=== PATIENT | male | born 1965 | race Caucasian/White ===

== ENCOUNTER 2018-01-12 20:45 | Emergency (ER) | payer OTHER, SELFPAY ==
[~2018-01-12 20:45] MED LIST: ISOVUE-370 76%-LOCM 1 ML ONE
--- NOTE | 2018-01-12 21:10 | RAD ---
CHEST TWO VIEWS: 01/12/18 HISTORY: Chest pain. COMPARISON: 07/09/17. FINDINGS: The cardiac silhouette and pulmonary vasculature are unremarkable. Mediastinum is midline. Bibasilar scarring is stable. There is no lobar consolidation, pneumothorax, or pleural fluid apparent. IMPRESSION: Chronic type findings are stable. No active cardiopulmonary abnormalities are demonstrated. POS: [facility]
[2018-01-12 21:46] LABS: #Eosinphils 0.1 thou/uL (0.0-0.7); #Lymphocytes 1.2 thou/uL (1.20-3.40); #Monocytes 0.6 thou/uL (0.11-0.59); #Neutrophils 4.1 thou/uL (1.40-6.50); %Basophils 0.6 % (0.0-1.0); %Eosinophils 1.7 % (0.0-10.0); %Lymphocytes 19.9 % (21.0-51.0); %Monocytes 9.3 % (0.0-10.0); %Neutrophils 68.6 % (42.0-75.0); Hemoglobin 14.1 g/dL (14.0-18.0); Mean Corpuscular HGB CONC 35.5 g/dL (32.0-36.0); Mean Corpuscular Hemoglobin 34.9 pg (27.0-31.0); Mean Corpuscular Volume 98.3 fl (80.0-94.0); Mean Platelet Volume 8.3 fL (7.4-10.4); Platelet Count 114 thou/uL (130-400); RBC Distribution Width 12.8 % (11.5-14.5); Red Blood Cell (RBC) Count 4.05 mill/uL (4.70-6.10); White Blood Cell (WBC) Count 5.9 thou/uL (4.8-10.8)
--- NOTE | 2018-01-12 22:03 | CT ---
CT NECK WITH IV CONTRAST 01/12/18 HISTORY: Cough. Neck pain. FINDINGS: Airway is patent. No tonsillar abscess is apparent. Reactive appearing lymph nodes are present along each jugular chain. Mucosal thickening is apparent within the ethmoid air cells and maxillary sinuses, left greater than right. Degenerative changes of the cervical spine include disc space narrowing, osteophytosis and pos terior disc bulges. Central canal stenosis is most pronounced at the C5-6 level. IMPRESSION: 1. No acute inflammatory changes of the neck are apparent. 2. Bilateral maxillary and ethmoid sinusitis. 3. Degenerative changes cervical spine. POS: [facility]
[2018-01-12 22:06] LABS: ALT (SGPT) 49 U/L (8-55); AST (SGOT) 31 U/L (5-34); Albumin 3.7 g/dL (3.5-5.0); Alkaline Phosphatase 69 U/L (40-150); Anion Gap 12 mmol/L (10-20); BUN (Urea Nitrogen) 16 mg/dL (8.4-25.7); Bilirubin, Total 0.5 mg/dL (0.2-1.2); CK (CPK) 59 U/L (30-200); Calc. Creatinine Clearance 0 mL/min (70-130); Calcium 8.8 mg/dL (7.8-10.44); Carbon Dioxide 25 mmol/L (22-29); Chloride 104 mmol/L (98-107); Estimated GFR-MDRD 82; Globulin 3.1 g/dL (2.4-3.5); Glucose 170 mg/dL (70-105); Magnesium 1.9 mg/dL (1.6-2.6); Protein, Total 6.8 g/dL (6.0-8.3); Sodium 137 mmol/L (136-145)
[2018-01-12 22:10] LABS: CKMB 0.6 ng/mL (0-6.6); Troponin I Less than 0.010 ng/mL (< 0.028)
[2018-01-12] MEDS ORDERED: Azithromycin 500 MG VIAL ONE (22:57)
--- NOTE | 2018-01-16 15:44 | EKG ---
Test Reason : [facility] CRIERIA Blood Pressure : / mmHG Vent. Rate : 082 BPM Atrial Rate : 082 BPM P-R Int : 156 ms QRS Dur : 110 ms QT Int : 380 ms P-R-T Axes : 059 -38 038 degrees QTc Int : 443 ms Normal sinus rhythm Left axis deviation Incomplete right bundle branch block Possible Anterior infarct , age undetermined Abnormal ECG Confirmed by LINA EUGENE D.O. ([id number]), image editor JAILYN MONTIEL ([id number]) on 01/16/2018 3:44:14 PM Referred By: Confirmed By:LINA EUGENE D.O.
== END 2018-01-13 00:10 | disposition home or self-care (01) ==
LOC: ERS 20:45
DX: J01.90 Acute sinusitis, unspecified (principal); E11.9 Type 2 diabetes mellitus without complications; E78.5 Hyperlipidemia, unspecified; I10 Essential (primary) hypertension; F31.9 Bipolar disorder, unspecified; F41.9 Anxiety disorder, unspecified; Z87.891 Personal history of nicotine dependence
CPT/HCPCS: 70491; 71046; 80053; 82553; 83735; 83880; 84484; 85025; 93005; 96365; J0456

== ENCOUNTER 2018-06-05 02:06 | Emergency (ER) | payer SELFPAY | END 2018-06-05 06:05 | disposition home or self-care (01) | LOC: ERS 02:06 | DX: S10.96XA Insect bite of unspecified part of neck, initial encounter (principal); E11.9 Type 2 diabetes mellitus without complications; E78.5 Hyperlipidemia, unspecified; I10 Essential (primary) hypertension; G47.30 Sleep apnea, unspecified; F31.9 Bipolar disorder, unspecified; F41.9 Anxiety disorder, unspecified; Z87.891 Personal history of nicotine dependence; W57.XXXA Bitten or stung by nonvenomous insect and other nonvenomous arthropods, initial encounter | CPT/HCPCS: 36416; 99282 ==

== ENCOUNTER 2018-06-12 21:15 | Emergency (ER) | payer SELFPAY ==
[2018-06-12] MEDS ORDERED: Fluorescein Opthalmic Strip ONE (22:38)
[2018-06-12] MEDS ORDERED: Proparacaine 0.5% Opth 15 ML BOT ONE (22:38)
== END 2018-06-12 23:15 | disposition home or self-care (01) ==
LOC: ERS 21:15
DX: H10.021 Other mucopurulent conjunctivitis, right eye (principal); E11.9 Type 2 diabetes mellitus without complications; E78.5 Hyperlipidemia, unspecified; I10 Essential (primary) hypertension; F31.9 Bipolar disorder, unspecified; F41.9 Anxiety disorder, unspecified; Z87.891 Personal history of nicotine dependence; Z79.899 Other long term (current) drug therapy; Z79.84 Long term (current) use of oral hypoglycemic drugs
CPT/HCPCS: 99282

== ENCOUNTER 2018-07-09 21:17 | Inpatient (IN) | payer SELFPAY ==
[2018-07-09 22:06] LABS: Bilirubin Negative (Negative); Blood, Urine Negative (Negative); Clarity CLEAR (Clear); Glucose, Urine (Dipstick) >=1000 mg/dL (Negative); Leukocyte Negative (Negative); Nitrite Negative (Negative); Protein, Urine (Dipstick) Negative (Neg-Trace)
--- NOTE | 2018-07-09 22:06 | RAD ---
PORTABLE AP CHEST X-RAY 07/09/18 HISTORY: Chest pain with onset of symptoms two days ago. Symptoms became worse tonight. COMPARISON: 07/09/18. FINDINGS: The cardiac silhouette is magnified by projection. Pulmonary vasculature is within normal limits. Vita gs are clear. Monitor leads overlie the chest. There has been no other interval change from the prior exam. IMPRESSION: No acute cardiopulmonary process. POS: [facility]
[2018-07-09 22:21] LABS: ALT (SGPT) 33 U/L (8-55); AST (SGOT) 18 U/L (5-34); Albumin 3.8 g/dL (3.5-5.0); Alkaline Phosphatase 90 U/L (40-150); Anion Gap 13 mmol/L (10-20); BUN (Urea Nitrogen) 12 mg/dL (8.4-25.7); CK (CPK) 52 U/L (30-200); Calc. Creatinine Clearance 0 mL/min (70-130); Carbon Dioxide 24 mmol/L (22-29); Chloride 100 mmol/L (98-107); Estimated GFR-MDRD 68; Globulin 3.2 g/dL (2.4-3.5); Glucose 453 mg/dL (70-105); Potassium 4.2 mmol/L (3.5-5.1); Sodium 133 mmol/L (136-145)
[2018-07-09 22:27] LABS: CKMB 0.6 ng/mL (0-6.6); Troponin I Less than 0.010 ng/mL (< 0.028)
[2018-07-09 22:36] LABS: Lipase 1170 U/L (8-78)
[2018-07-09 22:40] LABS: Hemoglobin 14.6 g/dL (14.0-18.0); Mean Corpuscular Volume 94.9 fL (78.0-98.0); Red Blood Cell (RBC) Count 4.18 mill/uL (4.70-6.10); White Blood Cell (WBC) Count 6.3 thou/uL (4.8-10.8)
[2018-07-09 23:10] LABS: #Eosinphils 0.1 thou/uL (0.0-0.7); #Lymphocytes 1.3 thou/uL (1.20-3.40); #Monocytes 0.5 thou/uL (0.11-0.59); #Neutrophils 4.3 thou/uL (1.40-6.50); %Basophils 0.5 % (0.0-1.0); %Eosinophils 1.4 % (0.0-10.0); %Lymphocytes 21.3 % (21.0-51.0); %Monocytes 8.2 % (0.0-10.0); %Neutrophils 68.7 % (42.0-75.0); Mean Corpuscular HGB CONC 36.7 g/dL (32.0-36.0); Mean Corpuscular Hemoglobin 34.9 pg (27.0-31.0); Mean Platelet Volume 8.1 fL (7.4-10.4); Platelet Count 116 thou/uL (130-400); RBC Distribution Width 11.6 % (11.5-14.5)
[2018-07-09 23:11] LABS: PLT Morphology Comment Appears Decreased
--- NOTE | 2018-07-10 00:30 | CT ---
CT ANGIOGRAM THORAX AND ABDOMEN WITH IV CONTRAST AND 3D RECONSTRUCTIONS 07/09/18 HISTORY: Chest pain and shortness of breath. Left sided abdominal pain for two to three days. COMPARISON: CTA thorax on 06/26/[address] abdomen on 06/03/16. FINDINGS: There is suboptimal timing of the contrast bolus. However, the thoracic and abdominal aorta are sandra l in caliber without evidence of an aortic dissection. Minimal vascular calcifications are seen in th e infrarenal abdominal aorta and involving the iliac arteries. The visualized iliac arteries patent. Mediastinal structures have a normal appearance. Minimal vascular calcifications seen in the coronary arteries. There is a small approximately 7 mm nodule density at the posterior aspect of the right lung apex. Th is was not seen on the prior exam. This has more of a linear appearance on coronal images and could b e related to mild atelectasis as opposed to pulmonary nodule but followup evaluation is recommended g iven the size of this nodular density. There is bibasilar atelectasis present. No pleural effusion is noted. Again noted is diffuse fatty infiltration of the liver. The liver is enlarged in craniocaudal dimensi ons measuring 23.8 cm. The spleen is also enlarged and measures 18.9 cm in AP dimensions. There is cortical scarring involving the superior pole of each kidney. The kidneys otherwise have a n ormal CT appearance. The pancreas and bilateral adrenal glands demonstrate a normal CT appearance. Small fat containing um bilical hernia is noted. There has been no other interval change from the prior study. Degenerative changes are again noted in the spine. IMPRESSION: 1. Pleural based nodular density in the posterior aspect right lung apex. This was not seen on p rior exam in 2016. This probably represents an area of atelectasis, but given suggestion of nodularit y, followup CT thorax in six months is recommended. 2. The thoracic and abdominal aorta are normal in caliber without evidence of an aortic dissecti on. 3. Hepatosplenomegaly with fatty infiltration of the liver. 4. Scarring in the superior pole of each kidney. POS: [facility]
[2018-07-10 04:07] VITALS: BMI 38.5
--- NOTE | 2018-07-10 04:17 | PDOC.EVN ---
Event Note - Event Note Event Note: verified with patient - in the past month he has been going to a new PCP Dr. Shelby at [facility] and no longer sees Dr. Rodney
[2018-07-10] MEDS ORDERED: Dextrose 5% in Water 1,000 ML IV PRN ×2 (04:19→08:09)
[2018-07-10] MEDS ORDERED: Dextrose 50% Abboject 50 ML SYRINGE SLOW IVP PRN ×2 (04:19→08:09)
[2018-07-10] MEDS ORDERED: HumaLOG 300 UNITS/3 ML VIAL SC PRN ×2 (04:19→08:09)
[2018-07-10] MEDS: Fentanyl 100 MCG/2 ML VIAL SLOW IVP PRN ×4 (04:33→22:06)
[2018-07-10] MEDS: Sodium Chloride 0.9% 1,000 ML IV SCH ×4 (04:34→23:55)
[2018-07-10 05:19] LABS: #Basophils 0.1 thou/uL (0.0-0.2); #Eosinphils 0.1 thou/uL (0.0-0.7); #Lymphocytes 1.3 thou/uL (1.20-3.40); #Monocytes 0.5 thou/uL (0.11-0.59); #Neutrophils 3.9 thou/uL (1.40-6.50); %Basophils 0.9 % (0.0-1.0); %Eosinophils 1.8 % (0.0-10.0); %Lymphocytes 21.5 % (21.0-51.0); %Monocytes 9.3 % (0.0-10.0); %Neutrophils 66.5 % (42.0-75.0); Hemoglobin 14.3 g/dL (14.0-18.0); Mean Corpuscular HGB CONC 36.7 g/dL (32.0-36.0); Mean Corpuscular Hemoglobin 34.9 pg (27.0-31.0); Mean Corpuscular Volume 95.3 fL (78.0-98.0); Mean Platelet Volume 7.8 fL (7.4-10.4); Platelet Count 102 thou/uL (130-400); RBC Distribution Width 11.6 % (11.5-14.5); Red Blood Cell (RBC) Count 4.09 mill/uL (4.70-6.10); White Blood Cell (WBC) Count 5.8 thou/uL (4.8-10.8)
[2018-07-10 05:32] LABS: Anion Gap 14 mmol/L (10-20); BUN (Urea Nitrogen) 10 mg/dL (8.4-25.7); Calc. Creatinine Clearance 199 mL/min (70-130); Calcium 8.7 mg/dL (7.8-10.44); Carbon Dioxide 21 mmol/L (22-29); Chloride 104 mmol/L (98-107); Estimated GFR-MDRD Greater than 90; Glucose 293 mg/dL (70-105); Potassium 3.8 mmol/L (3.5-5.1); Sodium 135 mmol/L (136-145)
[2018-07-10 05:45] LABS: Lipase 1164 U/L (8-78)
[2018-07-10] MEDS ORDERED: hydrALAZINE 20 MG/ML VIAL SLOW IVP PRN (08:09)
[2018-07-10] MEDS ORDERED: Ondansetron HCl/PF 4 MG/2 ML Vial IVP PRN (08:09)
[2018-07-10] MEDS ORDERED: Lisinopril 20 MG TAB PO SCH (09:00)
[2018-07-10] MEDS: Aspirin 81 mg Enteric Coated Tablet PO SCH (10:12)
[2018-07-10] MEDS: Famotidine/PF 20 mg/2ml Vial SLOW IVP SCH ×2 (10:12→20:22)
[2018-07-10] MEDS: Enoxaparin Sodium 40 MG/0.4 ML SYRINGE SC SCH (10:12)
[2018-07-10] MEDS: cloNIDine 0.1 MG TAB PO SCH ×2 (10:13→20:21)
[2018-07-10] MEDS: Divalproex Sodium DR 500 MG TAB PO SCH ×2 (10:13→20:21)
[2018-07-10 12:49] LABS: Cardiac Risk 4.5 (Less than 4.5)
[2018-07-10] MEDS: HumaLOG 300 UNITS/3 ML VIAL SC PRN (13:05)
--- NOTE | 2018-07-10 13:38 | HP ---
PRIMARY CARE PHYSICIAN: [facility] in [place]. CHIEF COMPLAINT: Abdominal and chest pain. HISTORY OF PRESENT ILLNESS: Mr. Castaneda is a pleasant 52-year-old gentleman that has a history of diabe edmund mellitus and hypertension and also a previous history of pancreatitis about 2 years ago. He was in his usual state of health until about 4 days ago, he started feeling a gas pressure, primarily in his left side. It started in the lower abdomen actually and then progressed up into his chest. He s ays that it would get worse when he tried to eat and then he would start getting sick and having naus ea and vomiting. The pain got progressively worse to the point where it became a 9-10/10, and for th is reason, he came to the emergency room for evaluation. In the ER, he was found to have an elevated lipase and he is being admitted for an acute pancreatitis. He denies any fevers or chills. No chaitanya temesis, no blood in the urine, no blood in his stool. His only other symptoms are increase in urina tion, which he attributes to his blood glucose being elevated, but no blood in the urine and no dysur ia. REVIEW OF SYSTEMS: All systems were reviewed and are negative except for that mentioned in the histo ry of present illness. PAST MEDICAL HISTORY: Significant for diabetes mellitus, hypertension, hyperlipidemia, obstructive s leep apnea, depression, and pancreatitis. PAST SURGICAL HISTORY: He has had an I and D of an abscess on his arm. Right shoulder surgery and k nee surgery. ALLERGIES: MORPHINE and PENICILLIN. FAMILY HISTORY: Significant for diabetes and hypertension. SOCIAL HISTORY: He is a former smoker. He quit about 30 years ago. He denies any alcohol use. He is and has 3 children. He does not work. He says he is too sick to work, but he did not esdon lify for disability. MEDICATIONS: Include Depakote 500 mg twice a day, tramadol 50 mg t.i.d., clonidine 0.1 mg twice a da y, ibuprofen 800 mg t.i.d. as needed, metformin 1000 mg twice a day, lisinopril 40 mg daily, aspirin 81 mg a day. PHYSICAL EXAMINATION: GENERAL: He is alert and oriented. He appears to be in no acute distress. VITAL SIGNS: Blood pressure is 129/70, heart rate 59, respiratory rate of 20, temperature is 97.9. HEENT: His pupils are equal, round, and reactive. Extraocular muscles are intact. His sclerae are anicteric. Throat, no erythema, no exudates. NECK: No adenopathy, no bruits. LUNGS: Clear to auscultation. I did not appreciate any wheezing or rales. CARDIOVASCULAR: He has a normal S1 and S2. There is no S3 or S4. No murmurs, clicks, or rubs. ABDOMEN: Obese; it is soft. He has got some tenderness in the epigastric region as well as the left lower and upper quadrants. There is no rebound or guarding. EXTREMITIES: He does have some mild discoloration of his both calves, trace bilateral edema. He has got good dorsalis pedis pulses bilaterally. He has mycotic nails on both feet and some thickening o f the skin around the heels as well as some cracking on the left heel, but there is no drainage. NEUROLOGICAL: The exam is nonfocal. LABORATORY RESULTS: The white blood cell count is 5.8, hemoglobin 14.3, hematocrit is 39, platelet c ount is 102. Sodium was 135, potassium 3.8, chloride is 104, CO2 is 21, BUN of 10, creatinine 0.88, glucose is 293. Urinalysis was essentially negative. CT scan dissection protocol showed a pleural-b ased nodular density in the posterior aspect of the right lung apex, was not seen in 2016, probably r epresents atelectasis, but given the nodularity, a followup CT is recommended in 6 months. There was hepatosplenomegaly with fatty infiltration of the liver and scarring in the superior pole of each ki dney. ASSESSMENT AND PLAN: This is a 52-year-old gentleman, who presents to the emergency room with, 1. Severe abdominal pain and elevated lipase. He is being admitted for acute pancreatitis. The cau se is not immediately obvious. He will be placed on bowel rest and IV fluids. Since he is allergic to MORPHINE, we will give a trial of fentanyl as well as IV antiemetics. We will get an abdominal ul trasound in the event he has some radio-nonopaque stones in the gallbladder and also check a lipid pa talisha to rule out hypertriglyceridemia as a potential cause. 2. For diabetes mellitus, since he is n.p.o., he will be placed on a sliding scale insulin. He says his diabetes had not been very well controlled, and for this reason, we will likely discharge him in addition to the metformin, when it is time for him to be discharged home, possibly a long-acting ins ulin. 3. Hypertension. Since his blood pressure is currently well controlled and since he is n.p.o., we w ill place him on p.r.n. medications, and he will be placed on deep venous thrombosis and gastrointest inal prophylaxis.
--- NOTE | 2018-07-10 15:35 | ULT ---
ABDOMINAL ULTRASOUND: INDICATION: Acute pancreatitis. FINDINGS: The liver is echogenic suggesting hepatic steatosis or chronic hepatic medical disease. The gallbladder appears unremarkable. No evidence of gallstones. The common duct is normal caliber. Pancreas is mostly obscured. No evidence of peripancreatic edema. CT is recommended to evaluate the pancreas if pancreatitis is suspected. The spleen is enlarged. The liver is also enlarged measuring up to 21 cm. The technologist describe s a negative Nova's sign. The abdominal aorta and IVC are mostly obscured but appear normal as vis ualized. The common bile duct is normal caliber at 5 mm. Both kidneys are imaged and have symmetric size measuring 12 cm each. No hydronephrosis or acute renal abnormality identified. IMPRESSION: 1. Hepatosplenomegaly. 2. Echogenic liver suggesting hepatic steatosis or medical liver disease. 3. The pancreas is obscured and not adequately evaluated by ultrasound. POS: [facility]
[2018-07-11 04:29] LABS: #Basophils 0.1 thou/uL (0.0-0.2); #Eosinphils 0.1 thou/uL (0.0-0.7); #Lymphocytes 1.3 thou/uL (1.20-3.40); #Monocytes 0.5 thou/uL (0.11-0.59); #Neutrophils 4.1 thou/uL (1.40-6.50); %Basophils 0.9 % (0.0-1.0); %Lymphocytes 21.1 % (21.0-51.0); %Monocytes 7.7 % (0.0-10.0); %Neutrophils 68.3 % (42.0-75.0); Mean Corpuscular Hemoglobin 33.6 pg (27.0-31.0); Mean Platelet Volume 7.8 fL (7.4-10.4); Platelet Count 102 thou/uL (130-400); RBC Distribution Width 11.7 % (11.5-14.5); Red Blood Cell (RBC) Count 4.18 mill/uL (4.70-6.10)
[2018-07-11] MEDS: Fentanyl 100 MCG/2 ML VIAL SLOW IVP PRN ×2 (04:29→11:58)
[2018-07-11 04:48] LABS: Anion Gap 11 mmol/L (10-20); BUN (Urea Nitrogen) 9 mg/dL (8.4-25.7); Calc. Creatinine Clearance 216 mL/min (70-130); Calcium 8.8 mg/dL (7.8-10.44); Carbon Dioxide 24 mmol/L (22-29); Chloride 106 mmol/L (98-107); Estimated GFR-MDRD Greater than 90; Glucose 134 mg/dL (70-105); Lipase 808 U/L (8-78); Potassium 4.3 mmol/L (3.5-5.1); Sodium 137 mmol/L (136-145)
[2018-07-11] MEDS: Sodium Chloride 0.9% 1,000 ML IV SCH ×3 (06:32→17:48)
[2018-07-11] MEDS: Aspirin 81 mg Enteric Coated Tablet PO SCH (08:20)
[2018-07-11] MEDS: Divalproex Sodium DR 500 MG TAB PO SCH ×2 (08:20→20:14)
[2018-07-11] MEDS: Famotidine/PF 20 mg/2ml Vial SLOW IVP SCH ×2 (08:20→20:14)
[2018-07-11] MEDS: cloNIDine 0.1 MG TAB PO SCH ×2 (08:20→20:12)
[2018-07-11] MEDS: Enoxaparin Sodium 40 MG/0.4 ML SYRINGE SC SCH (08:20)
[2018-07-11] MEDS ORDERED: Loratadine 10 MG TAB PO PRN (11:57)
--- NOTE | 2018-07-11 11:59 | PDOC.PN ---
- Subjective Encounter Start Date: 07/11/18 Encounter Start Time: 11:57 Mr. Castaneda was seen today in follow-up of acute pancreatitis. He says the abdominal pain is now about a 6/10. He is hungry and wants to eat. - Objective Resuscitation Status: Resuscitation Status FULL:Full Resuscitation MAR Reviewed: Yes Vital Signs & Weight: Vital Signs (12 hours) Temp Pulse Resp BP BP Pulse Ox 07/11/18 08:20 164/84 H 07/11/18 08:00 97.8 F 59 L 20 98 07/11/18 07:46 97.8 F 59 L 20 152/81 H 98 07/11/18 04:55 98.1 F 58 L 18 116/68 96 07/11/18 01:02 97.8 F 67 20 116/68 98 Weight Admit Weight 316 lb Weight 316 lb I&O: 07/10/18 07/11/18 07/12/18 06:59 06:59 06:59 Intake Total 319.25 2944.5 Balance 319.25 2944.5 Result Diagrams: 07/11/18 03:42 07/11/18 03:42 Additional Labs: Accuchecks 07/11/18 07/11/18 07/10/18 11:21 04:51 20:37 POC Glucose 132 H 133 H 108 07/10/18 16:16 POC Glucose 118 H Phys Exam - Physical Examination HEENT: PERRLA Respiratory: no wheezing, no rales, no rhonchi, clear to auscultation bilateral Cardiovascular: RRR, no significant murmur Gastrointestinal: soft, positive bowel sounds + diffuse Left sided tenderness, no rebound or guarding Musculoskeletal: no edema Dx/Plan (1) Acute pancreatitis Code(s): K85.90 - ACUTE PANCREATITIS WITHOUT NECROSIS OR INFECTION, UNSP Status: Acute (2) Diabetes mellitus type 2 in obese Code(s): E11.69 - TYPE 2 DIABETES MELLITUS WITH OTHER SPECIFIED COMPLICATION; E66.9 - OBESITY, UNSPECIFIED Status: Chronic (3) Obesity (BMI 30-39.9) Code(s): E66.9 - OBESITY, UNSPECIFIED Status: Acute - Plan * Acute Pancreatitis- slowly improving Will give a trial of ice chips * Abdominal Ultrasound is negative for cholelithiasis, and triglyceride are in normal range. He denies alcohol use. The etiology is unclear. I have discussed this with the patient, and recommend outpatient GI evaluation * DM- blood glucose is stable * HTN- blood pressure is stable.
--- NOTE | 2018-07-11 12:37 | PDOC.EVN ---
Event Note - Event Note Event Note: I reviewed the findings of the CT scan result with Mr. Castaneda. There was an incidental note of a right pleural based nodule. He informs me that [facility] and was told that he had a nodule. He says they repeated the scan later and it was nothing. I explained to him this is new, and will need to be evaluated as an outpatient. I gave him a copy of his report.
[2018-07-12] MEDS: Sodium Chloride 0.9% 1,000 ML IV SCH ×2 (00:04→06:12)
[2018-07-12 05:24] LABS: Anion Gap 11 mmol/L (10-20); BUN (Urea Nitrogen) 9 mg/dL (8.4-25.7); Calc. Creatinine Clearance 209 mL/min (70-130); Calcium 8.7 mg/dL (7.8-10.44); Carbon Dioxide 22 mmol/L (22-29); Chloride 107 mmol/L (98-107); Estimated GFR-MDRD Greater than 90; Glucose 200 mg/dL (70-105); Lipase 800 U/L (8-78); Potassium 4.2 mmol/L (3.5-5.1); Sodium 136 mmol/L (136-145)
[2018-07-12] MEDS: HumaLOG 300 UNITS/3 ML VIAL SC PRN ×2 (06:13→13:56)
[2018-07-12 06:14] LABS: #Eosinphils 0.1 thou/uL (0.0-0.7); #Lymphocytes 1.1 thou/uL (1.20-3.40); #Monocytes 0.5 thou/uL (0.11-0.59); #Neutrophils 3.1 thou/uL (1.40-6.50); %Basophils 0.3 % (0.0-1.0); %Eosinophils 2.1 % (0.0-10.0); %Lymphocytes 23.5 % (21.0-51.0); %Monocytes 9.8 % (0.0-10.0); %Neutrophils 64.4 % (42.0-75.0); Hemoglobin 17.5 g/dL (14.0-18.0); Mean Corpuscular HGB CONC 37.9 g/dL (32.0-36.0); Mean Corpuscular Hemoglobin 36.3 pg (27.0-31.0); Mean Corpuscular Volume 95.6 fL (78.0-98.0); Mean Platelet Volume 8.5 fL (7.4-10.4); Platelet Count 72 thou/uL (130-400); Red Blood Cell (RBC) Count 4.82 mill/uL (4.70-6.10); White Blood Cell (WBC) Count 4.8 thou/uL (4.8-10.8)
[2018-07-12 07:38] VITALS: BP 145/77; TEMP 98.7
[2018-07-12] MEDS: cloNIDine 0.1 MG TAB PO SCH (08:43)
[2018-07-12] MEDS: Enoxaparin Sodium 40 MG/0.4 ML SYRINGE SC SCH (08:43)
[2018-07-12] MEDS: Famotidine/PF 20 mg/2ml Vial SLOW IVP SCH (08:43)
[2018-07-12] MEDS: Divalproex Sodium DR 500 MG TAB PO SCH (08:43)
[2018-07-12] MEDS: Aspirin 81 mg Enteric Coated Tablet PO SCH (08:44)
[2018-07-12] MEDS ORDERED: Fluticasone Propionate Nasal Spray 16 gm Bottle NASAL SCH (09:00)
--- NOTE | 2018-07-12 12:33 | PDOC.PN ---
- Subjective Encounter Start Date: 07/12/18 Encounter Start Time: 12:32 Mr. Castaneda was seen today in follow-up. He does not have ny complaints. He says the abdominal pain has improved. He would like to try a solid diet. - Objective Resuscitation Status: Resuscitation Status FULL:Full Resuscitation MAR Reviewed: Yes Vital Signs & Weight: Vital Signs (12 hours) Temp Pulse Resp BP BP Pulse Ox 07/12/18 08:43 145/77 H 07/12/18 08:00 98.7 F 51 L 20 97 07/12/18 07:34 98.7 F 51 L 20 145/77 H 97 Weight Admit Weight 316 lb Weight 316 lb I&O: 07/11/18 07/12/18 07/13/18 06:59 06:59 06:59 Intake Total 2944.5 2827 Balance 2944.5 2827 Result Diagrams: 07/12/18 04:41 07/12/18 04:41 Additional Labs: Accuchecks 07/12/18 07/12/18 07/11/18 11:25 04:35 19:45 POC Glucose 177 H 176 H 239 H 07/11/18 07/10/18 16:43 03:05 POC Glucose 175 H 270 H Phys Exam - Physical Examination HEENT: PERRLA Respiratory: no wheezing, no rales, no rhonchi, clear to auscultation bilateral Cardiovascular: RRR, no significant murmur, no rub Gastrointestinal: soft, non-tender, positive bowel sounds Musculoskeletal: no edema Neurological: non-focal Dx/Plan (1) Acute pancreatitis Code(s): K85.90 - ACUTE PANCREATITIS WITHOUT NECROSIS OR INFECTION, UNSP Status: Acute (2) Diabetes mellitus type 2 in obese Code(s): E11.69 - TYPE 2 DIABETES MELLITUS WITH OTHER SPECIFIED COMPLICATION; E66.9 - OBESITY, UNSPECIFIED Status: Chronic (3) Obesity (BMI 30-39.9) Code(s): E66.9 - OBESITY, UNSPECIFIED Status: Acute - Plan * Acute pancreatitis- Etiology unknown. Resolving * Will advance to a solid diet, and if he tolerates this he can be discharged home. * DM- stable * HTN- blood pressure is stable.
--- NOTE | 2018-07-13 01:55 | DIS ---
DATE OF ADMISSION: 07/10/2018 DATE OF DISCHARGE: 07/12/2018 PRIMARY CARE PHYSICIAN: At the [facility] in [place]. DISCHARGE DISPOSITION: Home. PRIMARY DISCHARGE DIAGNOSES: 1. Acute pancreatitis. 2. Diabetes mellitus, type 2. 3. Hypertension. 4. Dyslipidemia. 5. Obesity. 6. Obstructive sleep apnea. DISCHARGE MEDICATIONS: There was no change in his medications and he can continue tramadol 50 mg t.i .d. as needed, metformin 1000 mg twice daily, lisinopril 40 mg daily, ibuprofen 800 mg t.i.d., Depako te 500 mg twice a day, clonidine 0.1 mg twice daily, aspirin 81 mg daily. CODE STATUS: FULL CODE. ALLERGIES: MORPHINE and PENICILLINS. PROCEDURES DONE DURING ADMISSION: The patient had a CT scan dissection protocol in which there was a finding of a pleural based nodular density in the aspect of the right upper apex. There was no evid ence of dissection or PE. There was some hepatosplenomegaly and scarring in the upper poles of the k idneys. The patient also had an abdominal ultrasound, there was hepatosplenomegaly. There was some echogenicity of the liver suggesting steatosis. The pancreas was obscured. ALLERGIES: MORPHINE and PENICILLINS. HOSPITAL COURSE: Mr. Castaneda is a pleasant 52-year-old gentleman who presented to the emergency room wi th complaints of abdominal pain and chest pain. He was evaluated in the ER and found to have an elev ated lipase. He has had a history of previous pancreatitis. He tells me a couple of years ago and a t that time, they could not find the etiology. The same was true on this admission and that his lipi d panel was essentially negative. Abdominal ultrasound did not reveal any gallstones, nor did it dem onstrate any dilatation of his common duct. He denies alcohol use. Therefore, the etiology of the p ancreatitis was not obvious. He did improve over the course of the next couple of days, his diet was able to be advanced and he was subsequently able to be discharged home in stable condition. It was also noted incidentally on the CT scan that there was a pleural based nodule in the right lung. I di scussed these findings with the patient and gave him a copy of his CT scan report and told him this w ill need to be followed up in the outpatient setting and to take the report to his primary care physi jian. I also recommended that he have an outpatient GI evaluation to help to elucidate the cause of the pancreatitis. The patient was therefore stable for discharge on 07/12/2018.
--- NOTE | 2018-07-14 13:33 | EKG ---
Test Reason : Blood Pressure : / mmHG Vent. Rate : 087 BPM Atrial Rate : 087 BPM P-R Int : 154 ms QRS Dur : 114 ms QT Int : 366 ms P-R-T Axes : 061 -37 041 degrees QTc Int : 440 ms Normal sinus rhythm Left axis deviation Incomplete right bundle branch block Abnormal ECG Confirmed by ALENA HENRIQUEZ, BENTON ([id number]), development editor ELIEL LONDON ([id number]) on 07/14/2018 1:32:46 PM Referred By: Confirmed By:BENTON CARVAJAL MD
== END 2018-07-12 19:50 | disposition home or self-care (01) | DRG 440 ==
LOC: ERS 21:17 → T4-B 07-10 02:57
PROVIDERS: ADMIT Internal Medicine; ATTEND Internal Medicine
DX: K85.90 Acute pancreatitis without necrosis or infection, unspecified (principal); E11.9 Type 2 diabetes mellitus without complications; I10 Essential (primary) hypertension; E78.5 Hyperlipidemia, unspecified; E66.9 Obesity, unspecified; Z68.38 Body mass index [BMI] 38.0-38.9, adult; G47.33 Obstructive sleep apnea (adult) (pediatric); R91.1 Solitary pulmonary nodule; F32.9 Major depressive disorder, single episode, unspecified; Z87.891 Personal history of nicotine dependence; Z88.5 Allergy status to narcotic agent; Z88.0 Allergy status to penicillin; Z79.84 Long term (current) use of oral hypoglycemic drugs; Z79.82 Long term (current) use of aspirin; Z79.899 Other long term (current) drug therapy
CPT/HCPCS: 36415; 36416; 71045; 71275; 76700; 80048; 80053; 80061; 81003; 82010; 82550; 82553; 83690; 84484; 85025; 93005; 96360; 96361; A4216; J1650; J2405; J3010; S0028

== ENCOUNTER 2019-02-21 21:30 | Emergency (ER) | payer SELFPAY ==
[2019-02-21 22:11] LABS: #Eosinphils 0.1 thou/uL (0.0-0.7); #Lymphocytes 1.6 thou/uL (1.20-3.40); #Monocytes 0.5 thou/uL (0.11-0.59); #Neutrophils 4.4 thou/uL (1.40-6.50); %Basophils 0.7 % (0.0-1.0); %Lymphocytes 24.1 % (21.0-51.0); %Monocytes 7.2 % (0.0-10.0); Hemoglobin 14.7 g/dL (14.0-18.0); Mean Corpuscular HGB CONC 34.9 g/dL (32.0-36.0); Mean Corpuscular Hemoglobin 36.4 pg (27.0-31.0); Mean Platelet Volume 8.9 fL (7.4-10.4); Platelet Count 102 thou/uL (130-400); RBC Distribution Width 11.9 % (11.5-14.5); Red Blood Cell (RBC) Count 4.03 mill/uL (4.70-6.10); White Blood Cell (WBC) Count 6.6 thou/uL (4.8-10.8)
--- NOTE | 2019-02-21 22:14 | RAD ---
PORTABLE CHEST ONE VIEW: Date: 02-21-19 Time: 9:58 p.m. History: Shortness of breath. FINDINGS: Comparison is made with exam of 07-09-18. The heart size is normal. The lungs are expanded without focal areas of consolidation, pneumothoraces or pleural effusions. IMPRESSION: No radiographic evidence of acute cardiopulmonary process. POS: [facility]
[2019-02-21 22:30] LABS: ALT (SGPT) 41 U/L (8-55); AST (SGOT) 20 U/L (5-34); Alkaline Phosphatase 82 U/L (40-150); Anion Gap 18 mmol/L (10-20); BUN (Urea Nitrogen) 22 mg/dL (8.4-25.7); Bilirubin, Total 0.9 mg/dL (0.2-1.2); CK (CPK) 46 U/L (30-200); Calc. Creatinine Clearance 0 mL/min (70-130); Calcium 9.7 mg/dL (7.8-10.44); Carbon Dioxide 23 mmol/L (22-29); Chloride 94 mmol/L (98-107); Estimated GFR-MDRD 45; Globulin 2.8 g/dL (2.4-3.5); Lipase 57 U/L (8-78); Potassium 4.5 mmol/L (3.5-5.1); Protein, Total 6.8 g/dL (6.0-8.3); Sodium 130 mmol/L (136-145)
[2019-02-21 22:36] LABS: Glucose 630 mg/dL (70-105)
[2019-02-21 22:39] LABS: Bilirubin Negative (Negative); Blood, Urine Negative (Negative); Clarity CLEAR (Clear); Glucose, Urine (Dipstick) >=1000 mg/dL (Negative); Leukocyte Negative (Negative); Nitrite Negative (Negative); Protein, Urine (Dipstick) Negative (Neg-Trace); Specific Gravity, Urine 1.025 (1.002-1.036); Urobilinogen 0.2 mg/dL (0.2-1.0)
[2019-02-22] MEDS ORDERED: Insulin Regular 300 UNITS/3 ML VIAL ONE (00:07)
--- NOTE | 2019-02-26 13:54 | EKG ---
Test Reason : Blood Pressure : / mmHG Vent. Rate : 094 BPM Atrial Rate : 094 BPM P-R Int : 172 ms QRS Dur : 100 ms QT Int : 348 ms P-R-T Axes : 047 -45 017 degrees QTc Int : 435 ms Normal sinus rhythm Left axis deviation Inferior infarct , age undetermined Possible Anterior infarct , age undetermined Abnormal ECG Confirmed by KAITLIN MENDEZ DO ([id number]), news editor JAILYN MONTIEL ([id number]) on 02/26/2019 1:53:50 PM Referred By: Confirmed By:KAITLIN MENDEZ DO
== END 2019-02-22 01:08 | disposition home or self-care (01) ==
LOC: ERS 21:30
DX: E11.65 Type 2 diabetes mellitus with hyperglycemia (principal); E78.5 Hyperlipidemia, unspecified; I10 Essential (primary) hypertension; G47.30 Sleep apnea, unspecified; F41.9 Anxiety disorder, unspecified; F31.9 Bipolar disorder, unspecified; Z87.891 Personal history of nicotine dependence; Z79.899 Other long term (current) drug therapy; Z79.84 Long term (current) use of oral hypoglycemic drugs
CPT/HCPCS: 36416; 71045; 80053; 81003; 82550; 83690; 83880; 84484; 85025; 93005; 94640; 96360; 96361; J1815; J7620

== ENCOUNTER 2019-09-19 12:47 | Inpatient (IN) | payer SELFPAY ==
[~2019-09-19 12:47] MED LIST changes: +Heparin 1,000 UNITS/ML VIAL ONE; -ISOVUE-370 76%-LOCM 1 ML ONE; +Iopamidol 370 76% 100 ML VIAL ONE
[2019-09-19 13:28] LABS: Bilirubin Negative (Negative); Blood, Urine Large (Negative); Glucose, Urine (Dipstick) Negative (Negative); Leukocyte Moderate (Negative); Nitrite Positive (Negative); Protein, Urine (Dipstick) 100 mg/dL (Neg-Trace); Urobilinogen 0.2 mg/dL (Less than 2)
[2019-09-19 13:29] LABS: Clarity Hazy (Clear)
[2019-09-19 13:36] LABS: Bacteria/HPF 3+ HPF (None Seen); Mucous/LPF 1+ LPF (<2+); Transitional Epithelial 0-3 HPF (None Seen); WBC/HPF Greater Than 50 HPF (0-3)
[2019-09-19 13:41] LABS: #Basophils 0.1 thou/uL (0.0-0.2); #Eosinphils 0.1 thou/uL (0.0-0.7); #Lymphocytes 1.2 thou/uL (1.20-3.40); #Monocytes 0.6 thou/uL (0.11-0.59); #Neutrophils 5.3 thou/uL (1.40-6.50); %Basophils 0.7 % (0.0-1.0); %Eosinophils 0.8 % (0.0-10.0); %Monocytes 8.3 % (0.0-10.0); %Neutrophils 73.2 % (42.0-75.0); Hemoglobin 14.6 g/dL (14.0-18.0); Mean Corpuscular HGB CONC 35.7 g/dL (32.0-36.0); Mean Corpuscular Hemoglobin 36.2 pg (27.0-31.0); Mean Platelet Volume 8.4 fL (7.4-10.4); Platelet Count 122 thou/uL (130-400); RBC Distribution Width 12.3 % (11.5-14.5); Red Blood Cell (RBC) Count 4.04 mill/uL (4.70-6.10); White Blood Cell (WBC) Count 7.2 thou/uL (4.8-10.8)
[2019-09-19 14:03] LABS: ALT (SGPT) 54 U/L (8-55); AST (SGOT) 34 U/L (5-34); Albumin 4.3 g/dL (3.5-5.0); Alkaline Phosphatase 81 U/L (40-110); Anion Gap 16 mmol/L (10-20); BUN (Urea Nitrogen) 17 mg/dL (8.4-25.7); Bilirubin, Total 0.7 mg/dL (0.2-1.2); Calc. Creatinine Clearance 0 mL/min (70-130); Carbon Dioxide 25 mmol/L (22-29); Chloride 100 mmol/L (98-107); Estimated GFR-MDRD 57; Globulin 3.3 g/dL (2.4-3.5); Glucose 298 mg/dL (70-105); Potassium 3.9 mmol/L (3.5-5.1); Protein, Total 7.6 g/dL (6.0-8.3); Sodium 137 mmol/L (136-145)
[2019-09-19] MEDS ORDERED: cefTRIAXone\\ROCEPHIN 1 GM VIAL ONE (14:23)
[2019-09-19] MEDS ORDERED: Ondansetron PF 4 MG/2 ML Vial ONE (15:41)
[2019-09-19] MEDS ORDERED: Fentanyl 100 MCG/2 ML VIAL ONE (15:41)
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
[2019-09-19] MEDS ORDERED: Ketorolac Tromethamine 30 MG/ML VIAL ONE (17:58)
[2019-09-19] MEDS ORDERED: Acetaminophen 650 MG Suppository PR PRN (18:59)
[2019-09-19] MEDS ORDERED: Senokot S 8.6-50 MG TAB PO PRN (18:59)
[2019-09-19] MEDS ORDERED: Acetaminophen 325 MG TAB PO PRN (18:59)
[2019-09-19] MEDS ORDERED: Dextrose 50% Abboject 50 ML SYRINGE SLOW IVP PRN (19:04)
[2019-09-19] MEDS ORDERED: Dextrose 5% in Water 1,000 ML IV PRN (19:04)
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
[2019-09-19 21:55] VITALS: BMI 40.1
[2019-09-20] MEDS: HumaLOG 300 UNITS/3 ML VIAL SC PRN ×3 (05:45→17:44)
[2019-09-20 06:45] LABS: #Eosinphils 0.1 thou/uL (0.0-0.7); #Lymphocytes 1.1 thou/uL (1.20-3.40); #Monocytes 0.9 thou/uL (0.11-0.59); #Neutrophils 7.9 thou/uL (1.40-6.50); %Basophils 0.1 % (0.0-1.0); %Eosinophils 0.6 % (0.0-10.0); %Lymphocytes 10.9 % (21.0-51.0); %Monocytes 8.7 % (0.0-10.0); %Neutrophils 79.8 % (42.0-75.0); Hemoglobin 13.6 g/dL (14.0-18.0); Mean Corpuscular HGB CONC 35.3 g/dL (32.0-36.0); Mean Corpuscular Hemoglobin 36.2 pg (27.0-31.0); Mean Platelet Volume 8.2 fL (7.4-10.4); Platelet Count 100 thou/uL (130-400); RBC Distribution Width 12.3 % (11.5-14.5); Red Blood Cell (RBC) Count 3.77 mill/uL (4.70-6.10); White Blood Cell (WBC) Count 9.9 thou/uL (4.8-10.8)
[2019-09-20 07:11] LABS: Anion Gap 13 mmol/L (10-20); BUN (Urea Nitrogen) 15 mg/dL (8.4-25.7); Calc. Creatinine Clearance 183 mL/min (70-130); Carbon Dioxide 23 mmol/L (22-29); Chloride 103 mmol/L (98-107); Estimated GFR-MDRD 82; Glucose 260 mg/dL (70-105); Potassium 3.9 mmol/L (3.5-5.1); Sodium 135 mmol/L (136-145)
[2019-09-20] MEDS: Fentanyl 100 MCG/2 ML VIAL SLOW IVP PRN ×2 (08:39→20:58)
[2019-09-20] MEDS: Enoxaparin Sodium 40 MG/0.4 ML SYRINGE SC SCH (11:25)
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
[2019-09-20] MEDS ORDERED: cefTRIAXone\\ROCEPHIN 1 GM in Sodium Chloride 0.9% 100 ML IVPB SCH (15:00)
[2019-09-20] MEDS: Tamsulosin HCl 0.4 MG CAP PO SCH (17:44)
--- NOTE | 2019-09-20 18:28 | PDOC.HOSPP ---
- Subjective Encounter Date: 09/20/19 Encounter Time: 13:00 Subjective: pt up in bed still has some pain when he urinates. - Objective Vital Signs & Weight: Vital Signs (12 hours) Temp Pulse Resp BP BP Pulse Ox 09/20/19 16:00 98.1 F 62 18 143/75 H 94 L 09/20/19 11:00 98.6 F 77 18 146/78 H 97 09/20/19 08:27 97.5 F L 62 18 118/62 118/62 97 Weight Weight 321 lb 1.6 oz I&O: 09/19/19 09/20/19 09/21/19 06:59 06:59 06:59 Intake Total 1610 Output Total 113 1230 Balance -113 380 Result Diagrams: 09/20/19 06:32 09/20/19 06:32 Additional Labs: Accuchecks 09/20/19 09/20/19 09/20/19 16:32 11:12 04:42 POC Glucose 197 H 222 H 233 H Hospitalist ROS - Review of Systems Respiratory: denies: cough, dry, shortness of breath, hemoptysis, SOB with excertion, pleuritic pain, sputum, wheezing, other Cardiovascular: denies: chest pain, palpitations, orthopnea, paroxysmal noc. dyspnea, edema, light headedness, other Genitourinary: reports: dysuria - Medication Medications: Active Medications Generic Name Dose Route Start Last Admin Trade Name Freq PRN Reason Stop Dose Admin Enoxaparin Sodium 40 mg 09/20/19 09:00 09/20/19 11:25 Lovenox SC 40 mg 0900 GUILLE Administration Fentanyl 12.5 mcg 09/19/19 19:02 09/20/19 08:39 Sublimaze SLOW IVP 12.5 mcg Q8H PRN Administration Pain Ceftriaxone Sodium 1 gm/ 100 mls @ 200 mls/hr 09/20/19 15:00 09/20/19 15:20 Sodium Chloride IVPB 100 mls 1500 GUILLE Administration Insulin Human Lispro 0 units 09/19/19 19:04 09/20/19 17:44 Humalog SC 2 unit .MILD SLIDING SCALE PRN Administration Mild Correctional Scale Sodium Chloride 10 ml 09/20/19 13:01 09/20/19 15:21 Flush - Normal Saline IVF 10 ml PRN PRN Administration Saline Flush Tamsulosin HCl 0.4 mg 09/20/19 18:00 09/20/19 17:44 Flomax PO 0.4 mg 1800 GUILLE Administration - Exam Neck: negative: supple, symmetric, no JVD, no thyromegaly, no lymphadenopathy, no carotid bruit, JVD Gastrointestinal - other findings: suprapubic pain Hosp A/P (1) UTI (urinary tract infection) Status: Acute (2) Diarrhea Code(s): R19.7 - DIARRHEA, UNSPECIFIED Status: Acute (3) Obesity (BMI 30-39.9) Code(s): E66.9 - OBESITY, UNSPECIFIED Status: Acute (4) Diabetes mellitus type 2 in obese Code(s): E11.69 - TYPE 2 DIABETES MELLITUS WITH OTHER SPECIFIED COMPLICATION; E66.9 - OBESITY, UNSPECIFIED Status: Chronic - Plan will continue abx for now, possible cystitis. will check stool studies for cdiff and leukocytes.
[2019-09-20] MEDS: Divalproex Sodium DR 500 MG TAB PO SCH (20:58)
[2019-09-20] MEDS ORDERED: FLU VACC QS2019-20(6MOS UP)/PF 60 MCG/0.5 ML SYRINGE IM ONE (21:00)
[2019-09-21 05:50] LABS: #Eosinphils 0.1 thou/uL (0.0-0.7); #Lymphocytes 1.5 thou/uL (1.20-3.40); #Monocytes 0.6 thou/uL (0.11-0.59); #Neutrophils 6.1 thou/uL (1.40-6.50); %Basophils 0.1 % (0.0-1.0); %Eosinophils 1.8 % (0.0-10.0); %Lymphocytes 17.5 % (21.0-51.0); %Monocytes 7.3 % (0.0-10.0); %Neutrophils 73.3 % (42.0-75.0); Hemoglobin 13.6 g/dL (14.0-18.0); Mean Corpuscular HGB CONC 35.4 g/dL (32.0-36.0); Mean Corpuscular Hemoglobin 35.8 pg (27.0-31.0); Mean Platelet Volume 8.2 fL (7.4-10.4); Platelet Count 104 thou/uL (130-400); RBC Distribution Width 12.3 % (11.5-14.5); Red Blood Cell (RBC) Count 3.79 mill/uL (4.70-6.10); White Blood Cell (WBC) Count 8.3 thou/uL (4.8-10.8)
[2019-09-21 06:06] LABS: Anion Gap 12 mmol/L (10-20); BUN (Urea Nitrogen) 12 mg/dL (8.4-25.7); Calc. Creatinine Clearance 205 mL/min (70-130); Calcium 9.1 mg/dL (7.8-10.44); Carbon Dioxide 24 mmol/L (22-29); Chloride 103 mmol/L (98-107); Estimated GFR-MDRD Greater than 90; Glucose 218 mg/dL (70-105); Sodium 135 mmol/L (136-145)
--- NOTE | 2019-09-21 08:21 | PRG ---
DATE OF SERVICE: 09/21/2019 This is a 53-year-old white man, whom I am seeing today in room 4409 on September 21, 2019 at [facility]. He is afebrile. His vital signs are stable. He is voiding easier, but not back to normal, less dysuria, better stream. He is on Rocephin. His urine culture has an E coli, but his sensitivities are still pending. His lab work is still all normal. I will need to see him in 2 to 3 weeks in my office and my office will set that visit up. He will need to go home on an appropriate oral antibiotic for probably 10 days. I think that would be reasonable, where he did not have fevers or chills with this. He will need to go home on Flomax 0.4 mg once a day 30 minutes after supper. I will sign off at this point. If he needs further urologic consultation, please just re-consult me while he is here. Job ID: [id number]
[2019-09-21] MEDS: Fentanyl 100 MCG/2 ML VIAL SLOW IVP PRN ×2 (08:43→17:30)
[2019-09-21] MEDS: Saccharomyces boulardii 250 MG CAP PO SCH (08:49)
[2019-09-21] MEDS: Lisinopril 20 MG TAB PO SCH (08:49)
[2019-09-21] MEDS: Enoxaparin Sodium 40 MG/0.4 ML SYRINGE SC SCH (08:52)
[2019-09-21] MEDS: Finasteride 5 MG TAB PO SCH ×2 (08:52→08:53)
[2019-09-21] MEDS: Divalproex Sodium DR 500 MG TAB PO SCH ×2 (08:52→20:09)
[2019-09-21] MEDS ORDERED: Terazosin HCl 1 MG CAP PO SCH (09:00)
[2019-09-21] MEDS: Insulin Glargine 5 UNITS in Pre-Filled Syringe 1 EACH SC SCH (10:26)
[2019-09-21] MEDS ORDERED: Piperacillin/Tazobactam 3.375 GM in Sodium Chloride 0.9% 100 ML IVPB SCH (12:00)
[2019-09-21] MEDS: HumaLOG 300 UNITS/3 ML VIAL SC PRN ×2 (12:16→17:26)
[2019-09-21] MEDS ORDERED: diphenhydrAMINE 25 MG CAP PO PRN (13:20)
[2019-09-21] MEDS: Sodium Chloride 0.9% 500 ML IV SCH ×2 (13:38→18:58)
[2019-09-21] MEDS: MEROPENEM 1 GM/50 ML 1 GM in Premix Bag 1 BAG IVPB SCH ×2 (15:12→20:54)
--- NOTE | 2019-09-21 16:26 | PDOC.HOSPP ---
- Subjective Encounter Date: 09/21/19 Encounter Time: 10:30 Subjective: pt up in bed still has pain when he urinates. - Objective Vital Signs & Weight: Vital Signs (12 hours) Temp Pulse Resp BP BP Pulse Ox 09/21/19 11:00 98.4 F 59 L 20 146/79 H 97 09/21/19 08:49 160/68 H 09/21/19 08:00 98.5 F 61 20 150/55 H 97 09/21/19 06:34 98 Weight Weight 321 lb 1.6 oz I&O: 09/20/19 09/21/19 09/22/19 06:59 06:59 06:59 Intake Total 1610 Output Total 113 1230 Balance -113 380 Result Diagrams: 09/21/19 05:33 09/21/19 05:33 Additional Labs: Accuchecks 09/21/19 09/21/19 09/20/19 11:46 04:41 19:24 POC Glucose 183 H 213 H 228 H 09/20/19 09/19/19 16:32 19:58 POC Glucose 197 H 194 H Hospitalist ROS - Review of Systems Respiratory: denies: cough, dry, shortness of breath, hemoptysis, SOB with excertion, pleuritic pain, sputum, wheezing, other Cardiovascular: denies: chest pain, palpitations, orthopnea, paroxysmal noc. dyspnea, edema, light headedness, other Genitourinary: reports: dysuria - Medication Medications: Active Medications Generic Name Dose Route Start Last Admin Trade Name Freq PRN Reason Stop Dose Admin Diphenhydramine HCl 25 mg 09/21/19 13:20 09/21/19 13:37 Benadryl PO 25 mg Q4H PRN Administration Itching Divalproex Sodium 500 mg 09/20/19 21:00 09/21/19 08:52 Depakote PO 500 mg BID GUILLE Administration Enoxaparin Sodium 40 mg 09/20/19 09:00 09/21/19 08:52 Lovenox SC 40 mg 0900 GUILLE Administration Fentanyl 12.5 mcg 09/19/19 19:02 09/21/19 08:43 Sublimaze SLOW IVP 12.5 mcg Q8H PRN Administration Pain Finasteride 5 mg 09/21/19 09:00 09/21/19 08:52 Proscar PO 5 mg DAILY GUILLE Administration Finasteride 5 mg 09/21/19 09:00 09/21/19 08:53 Proscar PO Not Given DAILY GUILLE Insulin Glargine 5 units/ 0.05 mls @ 0 mls/hr 09/21/19 09:00 09/21/19 10:26 Miscellaneous Medication SC 0.05 mls QAM GUILLE Administration Meropenem 1 gm/ Device 50 mls @ 100 mls/hr 09/21/19 14:00 09/21/19 15:12 IVPB 50 mls Q8HR GUILLE Administration Sodium Chloride 500 mls @ 100 mls/hr 09/21/19 13:30 09/21/19 13:38 Normal Saline 0.9% IV 500 mls .Q5H GUILLE Administration Insulin Human Lispro 0 units 09/19/19 19:04 09/21/19 12:16 Humalog SC 2 unit .MILD SLIDING SCALE PRN Administration Mild Correctional Scale Lisinopril 40 mg 09/21/19 09:00 09/21/19 08:49 Zestril PO 40 mg DAILY GUILLE Administration Saccharomyces Boulardii 250 mg 09/21/19 09:00 09/21/19 08:49 Florastor PO 250 mg DAILY GUILLE Administration Sodium Chloride 10 ml 09/20/19 21:00 09/21/19 08:53 Flush - Normal Saline IVF 10 ml Q12HR GUILLE Administration Sodium Chloride 10 ml 09/20/19 13:01 09/20/19 15:21 Flush - Normal Saline IVF 10 ml PRN PRN Administration Saline Flush Tamsulosin HCl 0.4 mg 09/20/19 18:00 09/20/19 17:44 Flomax PO 0.4 mg 1800 GUILLE Administration - Exam Neck: negative: supple, symmetric, no JVD, no thyromegaly, no lymphadenopathy, no carotid bruit, JVD Heart: negative: RRR, no murmur, no gallops, no rubs, normal peripheral pulses, irregular, diminshed peripheral pulses, murmur present, II/IV, III/IV Respiratory: negative: CTAB, no wheezes, no rales, no ronchi, normal chest expansion, no tachypnea, normal percussion, rales, rhonchi, tachypneic, wheezes Hosp A/P (1) UTI (urinary tract infection) Status: Acute (2) Diarrhea Code(s): R19.7 - DIARRHEA, UNSPECIFIED Status: Acute (3) Obesity (BMI 30-39.9) Code(s): E66.9 - OBESITY, UNSPECIFIED Status: Acute (4) Diabetes mellitus type 2 in obese Code(s): E11.69 - TYPE 2 DIABETES MELLITUS WITH OTHER SPECIFIED COMPLICATION; E66.9 - OBESITY, UNSPECIFIED Status: Chronic (5) BPH (benign prostatic hyperplasia) Code(s): N40.0 - BENIGN PROSTATIC HYPERPLASIA WITHOUT LOWER URINRY TRACT SYMP Status: Acute - Plan will continue abx for now, possible cystitis. will check stool studies for cdiff and leukocytes. 09/21 pt's urine cx is resistant to all oral abx except for nitrofurontin but i do not feel comfortable given his UA. I tried zosyn but pt started to feel itching and tingling around his lips so i discontinued it. i will get id to see him. His diarrhea has resolved
[2019-09-21] MEDS: Tamsulosin HCl 0.4 MG CAP PO SCH (17:26)
--- NOTE | 2019-09-21 17:59 | CON ---
DATE OF CONSULTATION: 09/21/2019 REASON FOR CONSULTATION: Cystitis with possible pyelonephritis in the setting of BPH. HISTORY OF PRESENT ILLNESS: A 53-year-old, history of BPH, managed by Dr. Weiss, type 2 diabetes with prior episode of UTI in the in the past, who now developed chills, right-sided back pain, associated with difficulty with voiding and with dysuria for the past few days before admission. The patient suffers from hypoventilation syndrome, sleep apnea, is on CPAP machine. No headaches. No dyspnea. No chest pain. No abdominal pain. No diarrhea or bleeding. No joint symptoms. PAST MEDICAL HISTORY: Obesity, type 2 diabetes, sleep apnea, BPH, prior episode of UTI. PAST SURGICAL HISTORY: Knee arthroscopy, shoulder repair, history of bipolar disorder. SOCIAL HISTORY: Never smoker. No alcoholic beverage use. ALLERGIES: MORPHINE AND PENICILLIN. MEDICATIONS: 1. Tylenol. 2. Catapres. 3. Dextrose. 4. Benadryl. 5. Depakote. 6. Lovenox. 7. Sevelamer. 8. Proscar. 9. Zestril. 10. Meropenem. 11. Flomax. PHYSICAL EXAMINATION: VITAL SIGNS: Temperature normal, blood pressure 130/79, pulse 57, respirations 20, and O2 saturation 97. GENERAL: Appears in no distress. Somnolent but oriented. Follows commands. Speech is normal. Skin is normal. No lymphadenopathy. HEENT: Ocular movements conjugate. Pupils are equal. Nasal passages patent. Oral cavity normal. NECK: Supple. No jugular venous distention. LUNGS: With clear breath sounds. HEART: S1 and S2. Regular rate. No S3 or S4. ABDOMEN: Soft, not distended or tender. Positive CVA tenderness, right-sided. EXTREMITIES: Nonfocal including cognitive function. LABORATORY STUDIES: White cell count 7.2 and 8.3, hemoglobin 13.6, platelets were 122,000 down to 104,000. Previous platelets have been low all the way back to 2013. Bilirubin 0.7. AST and ALT within normal limits. Alkaline phosphatase is normal as well. Albumin 4.3. Urinalysis with greater than 50 wbc's, 7 to 10 rbc's. Microbiology with ESBL E coli. C diff antigen and toxin negative. Stool lactoferrin, absence of elevated lactoferrin. Abdomen and pelvis CT with no obstructive features and no left nephrolithiasis, hepatic steatosis noted. ASSESSMENT: 1. Type 2 diabetes, obesity, sleep apnea, hepatic steatosis with evidence of chronic thrombocytopenia, possible cirrhosis, not yet identified. 2. Benign prostatic hyperplasia with ascending urinary tract infection with likely pyelonephritis with an extended-spectrum beta-lactamase phenotype like organism. DISCUSSION: The patient will need IV Merrem for about 2 weeks. PICC line placement. Discharge planning once he is clinically improved. Voiding function has been assessed by Dr. Weiss, who believes the patient is not going to require catheterization. Job ID: [id number]
[2019-09-21] MEDS: cloNIDine 0.1 MG TAB PO SCH (20:09)
[2019-09-21] MEDS: metFORMIN XR 500 MG TAB PO SCH (20:09)
[2019-09-21] MEDS ORDERED: METFORMIN HCL 500 MG PO SCH (21:00)
[2019-09-22] MEDS: Loperamide HCl 2 MG CAP PO PRN ×2 (05:05→08:46)
[2019-09-22] MEDS: MEROPENEM 1 GM/50 ML 1 GM in Premix Bag 1 BAG IVPB SCH ×3 (05:05→20:43)
[2019-09-22] MEDS: HumaLOG 300 UNITS/3 ML VIAL SC PRN ×3 (05:06→17:19)
[2019-09-22 05:40] LABS: #Eosinphils 0.2 thou/uL (0.0-0.7); #Lymphocytes 1.1 thou/uL (1.20-3.40); #Monocytes 0.6 thou/uL (0.11-0.59); #Neutrophils 4.7 thou/uL (1.40-6.50); %Basophils 0.6 % (0.0-1.0); %Eosinophils 2.5 % (0.0-10.0); %Lymphocytes 16.4 % (21.0-51.0); %Monocytes 9.5 % (0.0-10.0); %Neutrophils 70.9 % (42.0-75.0); Hemoglobin 14.3 g/dL (14.0-18.0); Mean Corpuscular HGB CONC 34.5 g/dL (32.0-36.0); Mean Corpuscular Hemoglobin 35.5 pg (27.0-31.0); Mean Platelet Volume 8.6 fL (7.4-10.4); Platelet Count 110 thou/uL (130-400); RBC Distribution Width 12.4 % (11.5-14.5); Red Blood Cell (RBC) Count 4.03 mill/uL (4.70-6.10); White Blood Cell (WBC) Count 6.7 thou/uL (4.8-10.8)
[2019-09-22 05:57] LABS: Anion Gap 13 mmol/L (10-20); BUN (Urea Nitrogen) 13 mg/dL (8.4-25.7); Calc. Creatinine Clearance 181 mL/min (70-130); Calcium 9.2 mg/dL (7.8-10.44); Carbon Dioxide 23 mmol/L (22-29); Chloride 103 mmol/L (98-107); Estimated GFR-MDRD 81; Glucose 231 mg/dL (70-105); Potassium 4.1 mmol/L (3.5-5.1); Sodium 135 mmol/L (136-145)
[2019-09-22] MEDS: cloNIDine 0.1 MG TAB PO SCH ×2 (08:08→20:42)
[2019-09-22] MEDS: Saccharomyces boulardii 250 MG CAP PO SCH ×2 (08:09→08:21)
[2019-09-22] MEDS: Lisinopril 20 MG TAB PO SCH (08:20)
[2019-09-22] MEDS: Finasteride 5 MG TAB PO SCH ×2 (08:21)
[2019-09-22] MEDS: metFORMIN XR 500 MG TAB PO SCH ×2 (08:22→20:42)
[2019-09-22] MEDS: Fentanyl 100 MCG/2 ML VIAL SLOW IVP PRN (08:24)
[2019-09-22] MEDS: Divalproex Sodium DR 500 MG TAB PO SCH ×2 (08:31→20:42)
[2019-09-22] MEDS: Enoxaparin Sodium 40 MG/0.4 ML SYRINGE SC SCH (08:31)
[2019-09-22] MEDS: Insulin Glargine 5 UNITS in Pre-Filled Syringe 1 EACH SC SCH (08:47)
--- NOTE | 2019-09-22 10:52 | PDOC.HOSPP ---
- Subjective Encounter Date: 09/22/19 Encounter Time: 09:00 Subjective: Patient seen and examined. No new complaints. No overnight events, he has burning sensation with urination - Objective Vital Signs & Weight: Vital Signs (12 hours) Temp Pulse Resp BP BP Pulse Ox 09/22/19 08:20 160/68 H 09/22/19 08:08 160/68 H 09/22/19 07:49 97.9 F 60 16 138/73 97 Weight Weight 321 lb 1.6 oz I&O: 09/21/19 09/22/19 09/23/19 06:59 06:59 06:59 Intake Total 1610 950 Output Total 1230 2350 Balance 380 -1400 Result Diagrams: 09/22/19 05:02 09/22/19 05:02 Additional Labs: Accuchecks 09/22/19 09/21/19 09/21/19 04:58 20:03 16:57 POC Glucose 235 H 155 H 230 H 09/21/19 09/19/19 11:46 19:58 POC Glucose 183 H 194 H Hospitalist ROS - Review of Systems Constitutional: denies: fever, chills, sweats, weakness, malaise, other Eyes: denies: pain, vision change, conjunctivae inflammation, eyelid inflammation, redness, other ENT: denies: ear pain, ear discharge, nose pain, nose discharge, nose congestion , mouth pain, mouth swelling, throat pain, throat swelling, other Respiratory: denies: cough, dry, shortness of breath, hemoptysis, SOB with excertion, pleuritic pain, sputum, wheezing, other Cardiovascular: denies: chest pain, palpitations, orthopnea, paroxysmal noc. dyspnea, edema, light headedness, other Gastrointestinal: denies: nausea, vomiting, abdominal pain, diarrhea, constipation, melena, hematochezia, other Genitourinary: reports: dysuria. denies: frequency, incontinence, hematuria, retention, other Musculoskeletal: denies: neck pain, shoulder pain, arm pain, back pain, hand pain, leg pain, foot pain, other Skin: denies: rash, lesions, jake, bruising, other - Medication Medications: Active Medications Generic Name Dose Route Start Last Admin Trade Name Freq PRN Reason Stop Dose Admin Clonidine 0.05 mg 09/21/19 21:00 09/22/19 08:08 Catapres PO 0.05 mg BID GUILLE Administration Diphenhydramine HCl 25 mg 09/21/19 13:20 09/21/19 13:37 Benadryl PO 25 mg Q4H PRN Administration Itching Divalproex Sodium 500 mg 09/20/19 21:00 09/22/19 08:31 Depakote PO 500 mg BID GUILLE Administration Enoxaparin Sodium 40 mg 09/20/19 09:00 09/22/19 08:31 Lovenox SC 40 mg 0900 GUILLE Administration Fentanyl 12.5 mcg 09/19/19 19:02 09/22/19 08:24 Sublimaze SLOW IVP 12.5 mcg Q8H PRN Administration Pain Finasteride 5 mg 09/21/19 09:00 09/22/19 08:21 Proscar PO 5 mg DAILY GUILLE Administration Finasteride 5 mg 09/21/19 09:00 09/22/19 08:21 Proscar PO Not Given DAILY GUILLE Insulin Glargine 5 units/ 0.05 mls @ 0 mls/hr 09/21/19 09:00 09/22/19 08:47 Miscellaneous Medication SC 0.05 mls QAM GUILLE Administration Meropenem 1 gm/ Device 50 mls @ 100 mls/hr 09/21/19 14:00 09/22/19 05:05 IVPB 50 mls Q8HR GUILLE Administration Insulin Human Lispro 0 units 09/19/19 19:04 09/22/19 05:06 Humalog SC 3 unit .MILD SLIDING SCALE PRN Administration Mild Correctional Scale Lisinopril 40 mg 09/21/19 09:00 09/22/19 08:20 Zestril PO 40 mg DAILY GUILLE Administration Loperamide HCl 2 mg 09/22/19 04:55 09/22/19 08:46 Imodium PO 2 mg Q4H PRN Administration Diarrhea/Loose Stools Metformin HCl 500 mg 09/21/19 21:00 09/22/19 08:22 Glucophage Xr PO 500 mg BID GUILLE Administration Saccharomyces Boulardii 250 mg 09/21/19 09:00 09/22/19 08:21 Florastor PO 250 mg DAILY GUILLE Administration Sodium Chloride 10 ml 09/20/19 21:00 09/21/19 20:54 Flush - Normal Saline IVF 10 ml Q12HR GUILLE Administration Sodium Chloride 10 ml 09/20/19 13:01 09/20/19 15:21 Flush - Normal Saline IVF 10 ml PRN PRN Administration Saline Flush Tamsulosin HCl 0.4 mg 09/20/19 18:00 09/21/19 17:26 Flomax PO 0.4 mg 1800 GUILLE Administration - Exam General Appearance: NAD, awake alert Eye: PERRL, anicteric sclera ENT: normocephalic atraumatic, no oropharyngeal lesions Neck: supple, symmetric, no JVD, no thyromegaly Heart: RRR, no murmur, no gallops, no rubs, normal peripheral pulses Respiratory: CTAB, no wheezes, no rales, no ronchi, normal chest expansion Gastrointestinal: soft, non-tender, non-distended, normal bowel sounds Extremities: no cyanosis, no clubbing, no edema Skin: normal turgor, no lesions, no rashes Neurological: cranial nerve grossly intact, no focal deficits Musculoskeletal: normal tone, normal strength Psychiatric: normal affect, normal behavior Hosp A/P (1) UTI (urinary tract infection) Status: Acute (2) Morbid obesity with BMI of 40.0-44.9, adult Code(s): E66.01 - MORBID (SEVERE) OBESITY DUE TO EXCESS CALORIES; Z68.41 - BODY MASS INDEX (BMI) 40.0-44.9, ADULT Status: Chronic (3) BPH (benign prostatic hyperplasia) Code(s): N40.0 - BENIGN PROSTATIC HYPERPLASIA WITHOUT LOWER URINRY TRACT SYMP Status: Acute (4) Hypertension Code(s): I10 - ESSENTIAL (PRIMARY) HYPERTENSION Status: Chronic Qualifiers: Hypertension type: essential hypertension Qualified Code(s): I10 - Essential (primary) hypertension - Plan old records reviewed/req, continue antibiotics, 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
[2019-09-22] MEDS: Tamsulosin HCl 0.4 MG CAP PO SCH (17:19)
[2019-09-23] MEDS: MEROPENEM 1 GM/50 ML 1 GM in Premix Bag 1 BAG IVPB SCH ×2 (05:39→14:13)
[2019-09-23] MEDS: Finasteride 5 MG TAB PO SCH ×2 (08:03→08:22)
[2019-09-23] MEDS: cloNIDine 0.1 MG TAB PO SCH (08:20)
[2019-09-23] MEDS: Lisinopril 20 MG TAB PO SCH (08:22)
[2019-09-23] MEDS: metFORMIN XR 500 MG TAB PO SCH (08:22)
[2019-09-23] MEDS: Saccharomyces boulardii 250 MG CAP PO SCH (08:22)
[2019-09-23] MEDS: Enoxaparin Sodium 40 MG/0.4 ML SYRINGE SC SCH (08:23)
[2019-09-23] MEDS: Divalproex Sodium DR 500 MG TAB PO SCH (08:23)
[2019-09-23] MEDS: Insulin Glargine 5 UNITS in Pre-Filled Syringe 1 EACH SC SCH (09:35)
--- NOTE | 2019-09-23 10:13 | PDOC.HOSPP ---
- Subjective Encounter Date: 09/23/19 Encounter Time: 07:50 Subjective: Patient seen and examined. No new complaints. No overnight events - Objective Vital Signs & Weight: Vital Signs (12 hours) Temp Pulse Resp BP BP Pulse Ox 09/23/19 08:22 145/81 H 09/23/19 08:20 145/81 H 09/23/19 07:55 97.8 F 70 16 148/73 H 97 Weight Weight 321 lb 1.6 oz I&O: 09/22/19 09/23/19 09/24/19 06:59 06:59 06:59 Intake Total 950 Output Total 2350 Balance -1400 Result Diagrams: 09/22/19 05:02 09/22/19 05:02 Additional Labs: Accuchecks 09/23/19 09/22/19 09/22/19 04:51 20:45 15:50 POC Glucose 163 H 160 H 172 H 09/22/19 11:18 POC Glucose 189 H Hospitalist ROS - Review of Systems Eyes: denies: pain, vision change, conjunctivae inflammation, eyelid inflammation, redness, other ENT: denies: ear pain, ear discharge, nose pain, nose discharge, nose congestion , mouth pain, mouth swelling, throat pain, throat swelling, other Respiratory: denies: cough, dry, shortness of breath, hemoptysis, SOB with excertion, pleuritic pain, sputum, wheezing, other Cardiovascular: denies: chest pain, palpitations, orthopnea, paroxysmal noc. dyspnea, edema, light headedness, other Gastrointestinal: denies: nausea, vomiting, abdominal pain, diarrhea, constipation, melena, hematochezia, other Genitourinary: denies: dysuria, frequency, incontinence, hematuria, retention, other Musculoskeletal: denies: neck pain, shoulder pain, arm pain, back pain, hand pain, leg pain, foot pain, other Skin: denies: rash, lesions, jake, bruising, other - Medication Medications: Active Medications Generic Name Dose Route Start Last Admin Trade Name Freq PRN Reason Stop Dose Admin Clonidine 0.05 mg 09/21/19 21:00 09/23/19 08:20 Catapres PO 0.05 mg BID GUILLE Administration Diphenhydramine HCl 25 mg 09/21/19 13:20 09/21/19 13:37 Benadryl PO 25 mg Q4H PRN Administration Itching Divalproex Sodium 500 mg 09/20/19 21:00 09/23/19 08:23 Depakote PO 500 mg BID GUILLE Administration Enoxaparin Sodium 40 mg 09/20/19 09:00 09/23/19 08:23 Lovenox SC 40 mg 0900 GUILLE Administration Fentanyl 12.5 mcg 09/19/19 19:02 09/22/19 08:24 Sublimaze SLOW IVP 12.5 mcg Q8H PRN Administration Pain Finasteride 5 mg 09/21/19 09:00 09/23/19 08:22 Proscar PO 5 mg DAILY GUILLE Administration Finasteride 5 mg 09/21/19 09:00 09/23/19 08:03 Proscar PO Not Given DAILY ON LICENSE OF [facility] Insulin Glargine 5 units/ 0.05 mls @ 0 mls/hr 09/21/19 09:00 09/23/19 09:35 Miscellaneous Medication SC 0.05 mls QAM GUILLE Administration Meropenem 1 gm/ Device 50 mls @ 100 mls/hr 09/21/19 14:00 09/23/19 05:39 IVPB 50 mls Q8HR GUILLE Administration Insulin Human Lispro 0 units 09/19/19 19:04 09/22/19 17:19 Humalog SC 2 unit .MILD SLIDING SCALE PRN Administration Mild Correctional Scale Lisinopril 40 mg 09/21/19 09:00 09/23/19 08:22 Zestril PO 40 mg DAILY GUILLE Administration Loperamide HCl 2 mg 09/22/19 04:55 09/22/19 08:46 Imodium PO 2 mg Q4H PRN Administration Diarrhea/Loose Stools Metformin HCl 500 mg 09/21/19 21:00 09/23/19 08:22 Glucophage Xr PO 500 mg BID GUILLE Administration Saccharomyces Boulardii 250 mg 09/21/19 09:00 09/23/19 08:22 Florastor PO 250 mg DAILY GUILLE Administration Sodium Chloride 10 ml 09/20/19 21:00 09/23/19 08:24 Flush - Normal Saline IVF 10 ml Q12HR GUILLE Administration Sodium Chloride 10 ml 09/20/19 13:01 09/20/19 15:21 Flush - Normal Saline IVF 10 ml PRN PRN Administration Saline Flush Tamsulosin HCl 0.4 mg 09/20/19 18:00 09/22/19 17:19 Flomax PO 0.4 mg 1800 GUILLE Administration - Exam General Appearance: NAD, awake alert Eye: PERRL, anicteric sclera ENT: normocephalic atraumatic, no oropharyngeal lesions Neck: supple, symmetric, no JVD, no thyromegaly Heart: RRR, no murmur, no gallops, no rubs, normal peripheral pulses Respiratory: CTAB, no wheezes, no rales, no ronchi Gastrointestinal: soft, non-tender, non-distended, normal bowel sounds Extremities: no cyanosis, no clubbing, no edema Skin: normal turgor, no lesions Neurological: no focal deficits Musculoskeletal: normal tone, normal strength Psychiatric: normal affect, normal behavior, A&O x 3 Hosp A/P (1) UTI (urinary tract infection) Status: Acute (2) Morbid obesity with BMI of 40.0-44.9, adult Code(s): E66.01 - MORBID (SEVERE) OBESITY DUE TO EXCESS CALORIES; Z68.41 - BODY MASS INDEX (BMI) 40.0-44.9, ADULT Status: Chronic (3) BPH (benign prostatic hyperplasia) Code(s): N40.0 - BENIGN PROSTATIC HYPERPLASIA WITHOUT LOWER URINRY TRACT SYMP Status: Acute (4) Hypertension Code(s): I10 - ESSENTIAL (PRIMARY) HYPERTENSION Status: Chronic Qualifiers: Hypertension type: essential hypertension Qualified Code(s): I10 - Essential (primary) hypertension - Plan old records reviewed/req, continue antibiotics, 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
[2019-09-23 14:06] VITALS: BP 161/77; TEMP 98.4
--- NOTE | 2019-09-23 15:26 | SPC ---
PICC PLACEMENT ULTRASOUND-GUIDED VENOUS ACCESS: (Peripherally inserted central catheter) DATE: 09/23/2019 HISTORY: 54-year-old male requiring long-term IV antibiotics for urinary tract infection TECHNIQUE: Catheter caliber: 5 Khmer Catheter trim length:49 cm Catheter lumen number:single Catheter tip location:Lower portion of SVC. Vein accessed:left basilic vein Total fluoroscopy time: 0.4 min. Dose area product: [id number] mGy*cm^2 Signed, informed consent was obtained. A tourniquet was applied at the proximal aspect of the arm. Th e arm was prepped and draped in the usual sterile fashion. A 25-gauge needle was used to applied buffered lidocaine superficially. The vein was punctured with a 21-gauge micropuncture needle under u ltrasound guidance. A 0.018 inch guidewire was advanced through the micropuncture needle and into the vein. Under fluoroscopic guidance, the guidewire was advanced to the superior vena cava. The PICC was flushed and trimmed to the appropriate length. The micropuncture needle was exchanged over the guidewire for a 5 Khmer peel-away dilator sheath. The dilator was exchanged over the guidewire for t he PICC, which was then further advanced under fluoroscopy. The sheath and guidewire were removed. The PICC was flushed again and secured in place at the arm after adjustment of tip position. The madonna ent tolerated the procedure well. There was no complication. IMPRESSION: Successful placement of PICC (peripherally inserted central catheter).
--- NOTE | 2019-09-23 17:54 | DIS ---
DATE OF ADMISSION: 09/19/2019 DATE OF DISCHARGE: 09/23/2019 DISCHARGE DISPOSITION: Home. PRIMARY DISCHARGE DIAGNOSES: 1. Acute urinary retention. 2. Urinary tract infection, likely due to prostatitis, acute kidney injury. SECONDARY DISCHARGE DIAGNOSES: Benign enlargement of prostate, hypertension, morbid obesity, diabetes type 2. PRIMARY PROCEDURE/OPERATION: PICC line. RADIOLOGICAL INVESTIGATION: Abdomen and pelvis CT scan. SIGNIFICANT LABORATORY DATA: Hemoglobin 14.3, WBC 6.7, platelet 110. Sodium 135, creatinine 0.97. Urinalysis suggested UTI. Urine culture grew E coli. DISCHARGE MEDICATIONS: 1. Invanz 1 g IV daily for 2 weeks. 2. Flomax 0.4 mg daily. 3. Florastor 250 mg daily. 4. Metformin 500 mg p.o. b.i.d. 5. Lisinopril 40 mg p.o. daily. 6. Proscar 5 mg daily. 7. Depakote 500 mg p.o. b.i.d. 8. Clonidine 0.1 mg half tablet twice daily. CONTRAINDICATION: None. CODE STATUS: Full code. INPATIENT SENIOR PAYROLL MANAGER: Dr. Leonides Weiss, Urology; Dr. Kraft, Infectious Disease. TEST RESULT PENDING ON DISCHARGE: None. ALLERGIES: MORPHINE AND PENICILLIN. DISCHARGE PLAN: Posthospital, the patient will follow up with Dr. Leonides Weiss in 1 week. The patient will make appointment with Dr. Kraft. HOSPITAL COURSE: A 54-year-old male who was admitted by Dr. Avilez. Please see his H and P for further details. The patient had urinary tract infection. He had CT abdomen and pelvis in the emergency room, which showed no nephrolithiasis or urinary tract obstruction. The patient had urine culture positive for E coli, which was multidrug resistant, and Dr. Kraft recommended 2 weeks of IV antibiotic therapy. With help of vocational case manager, we arranged outpatient IV antibiotic therapy. The patient will follow up with Urology after discharge. The patient is medically stable for discharge. The patient is seen and examined at bedside today. Please see my progress note from today for further detail. Job ID: [id number]
== END 2019-09-23 18:00 | disposition home or self-care (01) | DRG 690 ==
LOC: ERS 12:47 → OBSVTOIN 20:08 → T4-A 20:08
PROVIDERS: ADMIT Internal Medicine; ATTEND Internal Medicine
PROC: 02HV33Z Insertion of Infusion Device into Superior Vena Cava, Percutaneous Approach (ICD-10-PCS; principal; 2019-09-23)
DX: N30.90 Cystitis, unspecified without hematuria (principal); N17.9 Acute kidney failure, unspecified; Z68.41 Body mass index [BMI] 40.0-44.9, adult; Z16.24 Resistance to multiple antibiotics; N41.9 Inflammatory disease of prostate, unspecified; R33.9 Retention of urine, unspecified; N40.0 Benign prostatic hyperplasia without lower urinary tract symptoms; I10 Essential (primary) hypertension; E66.01 Morbid (severe) obesity due to excess calories; F41.9 Anxiety disorder, unspecified; F31.9 Bipolar disorder, unspecified; E78.00 Pure hypercholesterolemia, unspecified; G47.33 Obstructive sleep apnea (adult) (pediatric); D69.6 Thrombocytopenia, unspecified; E11.65 Type 2 diabetes mellitus with hyperglycemia; B96.20 Unspecified Escherichia coli [E. coli] as the cause of diseases classified elsewhere; Z88.6 Allergy status to analgesic agent; Z88.0 Allergy status to penicillin; Z79.4 Long term (current) use of insulin
CPT/HCPCS: 36415; 36416; 36569; 74176; 80048; 80053; 81003; 81015; 83605; 83630; 83690; 85025; 87077; 87086; 87186; 87324; 87449; 93005; 94660; 96361; 96365; 96375; C1751; J0696; J1644; J1650; J1815; J1885; J2185; J2405; J2543; J3010; J3490; Q0163; Q9967

== ENCOUNTER 2019-10-21 20:13 | Emergency (ER) | payer SELFPAY ==
[2019-10-21] MEDS ORDERED: methylPREDNISolone Sod Succ/PF 125 MG/2 ML VIAL ONE (20:20)
[2019-10-21] MEDS ORDERED: diphenhydrAMINE 50 MG/ML VIAL ONE (20:20)
[2019-10-21] MEDS ORDERED: Famotidine/PF 20 mg/2ml Vial ONE (20:20)
== END 2019-10-21 22:54 | disposition home or self-care (01) ==
LOC: ERS 20:13
DX: L50.0 Allergic urticaria (principal); E11.9 Type 2 diabetes mellitus without complications; E78.5 Hyperlipidemia, unspecified; E78.00 Pure hypercholesterolemia, unspecified; I10 Essential (primary) hypertension; F31.9 Bipolar disorder, unspecified; F41.9 Anxiety disorder, unspecified; G47.30 Sleep apnea, unspecified; Z87.891 Personal history of nicotine dependence; Z79.84 Long term (current) use of oral hypoglycemic drugs; Z79.899 Other long term (current) drug therapy
CPT/HCPCS: 96374; 96375; J1200; J2930; S0028

== ENCOUNTER 2019-12-04 17:06 | Emergency (ER) | payer SELFPAY ==
[2019-12-04 18:01] LABS: Bilirubin Negative (Negative); Blood, Urine 2+ (Negative); Clarity Clear (Clear); Glucose, Urine (Dipstick) Normal (Negative); Leukocyte 500 Leu/uL (Negative); Nitrite Negative (Negative); Protein, Urine (Dipstick) 30 mg/dL (Neg-Trace); Squamous Epithelial 0-3 HPF (0-3); WBC/HPF Greater than 50 HPF (0-3)
[2019-12-04 18:02] LABS: Bacteria/HPF 1+ HPF (None Seen)
[2019-12-04 18:03] LABS: #Eosinphils 0.1 thou/uL (0.0-0.7); #Lymphocytes 1.4 thou/uL (1.20-3.40); #Monocytes 0.5 thou/uL (0.11-0.59); #Neutrophils 5.9 thou/uL (1.40-6.50); %Basophils 0.5 % (0.0-1.0); %Lymphocytes 17.9 % (21.0-51.0); %Monocytes 5.7 % (0.0-10.0); Hemoglobin 13.8 g/dL (14.0-18.0); Mean Corpuscular HGB CONC 34.6 g/dL (32.0-36.0); Mean Corpuscular Hemoglobin 35.4 pg (27.0-31.0); Mean Platelet Volume 8.6 fL (7.4-10.4); Platelet Count 111 thou/uL (130-400); RBC Distribution Width 12.5 % (11.5-14.5); Red Blood Cell (RBC) Count 3.88 mill/uL (4.70-6.10); White Blood Cell (WBC) Count 7.9 thou/uL (4.8-10.8)
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
[2019-12-04 18:23] LABS: ALT (SGPT) 25 U/L (8-55); AST (SGOT) 19 U/L (5-34); Albumin 3.9 g/dL (3.5-5.0); Alkaline Phosphatase 66 U/L (40-110); Anion Gap 13 mmol/L (10-20); BUN (Urea Nitrogen) 14 mg/dL (8.4-25.7); Bilirubin, Total 0.6 mg/dL (0.2-1.2); Calc. Creatinine Clearance 0 mL/min (70-130); Calcium 8.8 mg/dL (7.8-10.44); Carbon Dioxide 23 mmol/L (22-29); Chloride 107 mmol/L (98-107); Estimated GFR-MDRD 62; Glucose 163 mg/dL (70-105); Lipase 39 U/L (8-78); Protein, Total 6.9 g/dL (6.0-8.3); Sodium 139 mmol/L (136-145)
[2019-12-04] MEDS ORDERED: Ketorolac Tromethamine 30 MG/ML VIAL ONE (19:22)
== END 2019-12-04 19:35 | disposition home or self-care (01) ==
LOC: ERS 17:06
DX: N10 Acute pyelonephritis (principal); E11.9 Type 2 diabetes mellitus without complications; I10 Essential (primary) hypertension; E78.5 Hyperlipidemia, unspecified; E78.00 Pure hypercholesterolemia, unspecified; G47.30 Sleep apnea, unspecified; F31.9 Bipolar disorder, unspecified; F41.9 Anxiety disorder, unspecified; Z87.891 Personal history of nicotine dependence; Z79.899 Other long term (current) drug therapy; Z79.84 Long term (current) use of oral hypoglycemic drugs
CPT/HCPCS: 36415; 74176; 80053; 81003; 81015; 83690; 85025; 96372; J1885

== ENCOUNTER 2021-08-13 14:00 | Emergency (ER) | payer SELFPAY ==
[2021-08-13 15:33] LABS: Bacteria/HPF 2+ HPF (None Seen); Bilirubin Negative (Negative); Blood, Urine Negative (Negative); Clarity Clear (Clear); Glucose, Urine (Dipstick) Greater than 1000 mg/dL (Negative); Ketone, Urine Negative (Negative); Leukocyte 500 Leu/uL (Negative); Nitrite Negative (Negative); Protein, Urine (Dipstick) Negative (Neg-Trace); RBC/HPF 0-3 HPF (0-3); Specific Gravity, Urine 1.018 (1.002-1.036); Squamous Epithelial 0-3 HPF (0-3); Urobilinogen Normal mg/dL (Less than 2); WBC/HPF 21-50 HPF (0-3); pH, Urine 5.5 (5.0-9.0)
[2021-08-13 16:37] LABS: #Eosinphils 0.1 thou/uL (0.0-0.7); #Lymphocytes 1.3 thou/uL (1.20-3.40); #Monocytes 0.5 thou/uL (0.11-0.59); #Neutrophils 4.4 thou/uL (1.40-6.50); %Basophils 0.3 % (0.0-1.0); %Eosinophils 0.9 % (0.0-10.0); %Lymphocytes 21.4 % (21.0-51.0); %Neutrophils 69.4 % (42.0-75.0); Hemoglobin 13.5 g/dL (14.0-18.0); Mean Corpuscular HGB CONC 35.2 g/dL (32.0-36.0); Mean Corpuscular Hemoglobin 39.4 pg (27.0-31.0); RBC Distribution Width 12.9 % (11.5-14.5); Red Blood Cell (RBC) Count 3.43 mill/uL (4.70-6.10); White Blood Cell (WBC) Count 6.3 thou/uL (4.8-10.8)
[2021-08-13 16:57] LABS: ALT (SGPT) 24 U/L (8-55); AST (SGOT) 18 U/L (5-34); Albumin 3.6 g/dL (3.5-5.0); Alkaline Phosphatase 79 U/L (40-110); Anion Gap 12 mmol/L (10-20); BUN (Urea Nitrogen) 30 mg/dL (8.4-25.7); Calc. Creatinine Clearance 0 mL/min (70-130); Calcium 8.7 mg/dL (7.8-10.44); Carbon Dioxide 27 mmol/L (22-29); Chloride 96 mmol/L (98-107); Globulin 3.2 g/dL (2.4-3.5); Potassium 4.2 mmol/L (3.5-5.1); Protein, Total 6.8 g/dL (6.0-8.3); Sodium 131 mmol/L (136-145)
[2021-08-13 16:58] LABS: MDiff Complete? YES; Macrocytosis SLIGHT = 6-15 cells (100X) (0-5/hpf); Mean Platelet Volume 9.4 fL (7.4-10.4); Platelet Count 105 thou/uL (130-400); Platelet Morphology Comment Appears Decreased
[2021-08-13 17:02] LABS: Glucose 566 mg/dL (70-105)
[2021-08-13] MEDS ORDERED: Insulin Regular 300 UNITS/3 ML VIAL ONE ×2 (17:49→19:32)
== END 2021-08-13 20:57 | disposition home or self-care (01) ==
LOC: ERS 14:00
DX: E11.65 Type 2 diabetes mellitus with hyperglycemia (principal); E86.0 Dehydration; E86.1 Hypovolemia; E78.5 Hyperlipidemia, unspecified; E78.00 Pure hypercholesterolemia, unspecified; I10 Essential (primary) hypertension; Z87.891 Personal history of nicotine dependence; Z79.899 Other long term (current) drug therapy
CPT/HCPCS: 36415; 36416; 80053; 81003; 81015; 85025; 93005; 96374; 96376; J1815

== ENCOUNTER 2021-08-17 01:54 | Emergency (ER) | payer SELFPAY ==
[2021-08-17] MEDS ORDERED: Ketorolac Tromethamine 30 MG/ML VIAL ONE (03:13)
== END 2021-08-17 04:54 | disposition home or self-care (01) ==
LOC: ERS 01:54
DX: S46.011A Strain of muscle(s) and tendon(s) of the rotator cuff of right shoulder, initial encounter (principal); M25.511 Pain in right shoulder; X50.0XXA Overexertion from strenuous movement or load, initial encounter; E11.9 Type 2 diabetes mellitus without complications; E78.5 Hyperlipidemia, unspecified; E78.00 Pure hypercholesterolemia, unspecified; I10 Essential (primary) hypertension; F17.210 Nicotine dependence, cigarettes, uncomplicated; Z79.84 Long term (current) use of oral hypoglycemic drugs; Z79.899 Other long term (current) drug therapy
CPT/HCPCS: 96372; 99283; J1885

== ENCOUNTER 2021-12-05 20:01 | Emergency (ER) | payer SELFPAY ==
[2021-12-05 21:02] LABS: #Eosinphils 0.1 thou/uL (0.0-0.7); #Lymphocytes 1.4 thou/uL (1.20-3.40); #Monocytes 0.4 thou/uL (0.11-0.59); %Basophils 0.3 % (0.0-1.0); %Eosinophils 1.6 % (0.0-10.0); %Monocytes 6.9 % (0.0-10.0); %Neutrophils 67.1 % (42.0-75.0); Mean Corpuscular HGB CONC 34.6 g/dL (32.0-36.0); Mean Corpuscular Hemoglobin 40.3 pg (27.0-31.0); Mean Platelet Volume 9.6 fL (7.4-10.4); Platelet Count 103 thou/uL (130-400); RBC Distribution Width 13.7 % (11.5-14.5); Red Blood Cell (RBC) Count 2.97 mill/uL (4.70-6.10)
[2021-12-05 21:14] LABS: MDiff Complete? YES; Macrocytosis SLIGHT = 6-15 cells (100X) (0-5/hpf); Ovalocytes SLIGHT = 2-5 cells (100X) (0-1/hpf); Platelet Morphology Comment Appears Decreased; Polychromasia SLIGHT = 2-3 cells (100X) (0-2/hpf)
[2021-12-05 21:38] LABS: Anion Gap 16 mmol/L (10-20); BUN (Urea Nitrogen) 18 mg/dL (8.4-25.7); Calc. Creatinine Clearance 0 mL/min (70-130); Calcium 8.9 mg/dL (7.8-10.44); Carbon Dioxide 19 mmol/L (22-29); Chloride 104 mmol/L (98-107); Glucose 208 mg/dL (70-105); Potassium 4.7 mmol/L (3.5-5.1); Sodium 134 mmol/L (136-145)
[2021-12-05] MEDS ORDERED: Ketorolac Tromethamine 30 MG/ML VIAL ONE (22:06)
== END 2021-12-05 22:30 | disposition home or self-care (01) ==
LOC: ERS 20:01
DX: M10.9 Gout, unspecified (principal); I10 Essential (primary) hypertension; E11.9 Type 2 diabetes mellitus without complications; E78.5 Hyperlipidemia, unspecified; E78.00 Pure hypercholesterolemia, unspecified; Z87.891 Personal history of nicotine dependence
CPT/HCPCS: 36415; 80048; 85025; 85652; 86140; 96372; 99283; J1885

== ENCOUNTER 2022-08-11 00:51 | Emergency (ER) | payer SELFPAY ==
[2022-08-11 01:50] LABS: Hemoglobin 9.7 g/dL (14.0-18.0); Mean Corpuscular HGB CONC 35.9 g/dL (32.0-36.0); Red Blood Cell (RBC) Count 2.15 mill/uL (4.70-6.10); White Blood Cell (WBC) Count 5.4 thou/uL (4.8-10.8)
[2022-08-11 02:06] LABS: ALT (SGPT) 17 U/L (8-55); AST (SGOT) 17 U/L (5-34); Acetaminophen Less than 10.0 mcg/mL (10.0-30.0); Albumin 3.8 g/dL (3.5-5.0); Alcohol Less than 10 mg/dL (Less than 10); Alkaline Phosphatase 61 U/L (40-110); Anion Gap 13 mmol/L (10-20); BUN (Urea Nitrogen) 14 mg/dL (8.4-25.7); Calc. Creatinine Clearance 0 mL/min (70-130); Calcium 8.9 mg/dL (7.8-10.44); Carbon Dioxide 23 mmol/L (22-29); Chloride 106 mmol/L (98-107); Estimated GFR 82; Globulin 2.4 g/dL (2.4-3.5); Glucose 171 mg/dL (70-105); Potassium 3.9 mmol/L (3.5-5.1); Protein, Total 6.2 g/dL (6.0-8.3); Salicylate Less than 8.0 mg/dL (15.0-30.0); Sodium 138 mmol/L (136-145)
[2022-08-11 02:10] LABS: #Eosinphils 0.1 thou/uL (0.0-0.7); #Lymphocytes 1.2 thou/uL (1.20-3.40); #Monocytes 0.3 thou/uL (0.11-0.59); #Neutrophils 3.8 thou/uL (1.40-6.50); %Basophils 0.4 % (0.0-1.0); %Eosinophils 1.4 % (0.0-10.0); %Lymphocytes 22.1 % (21.0-51.0); %Monocytes 5.7 % (0.0-10.0); %Neutrophils 70.5 % (42.0-75.0); Bilirubin, Total 1.6 mg/dL (0.2-1.2); MDiff Complete? YES; Macrocytosis MODERATE=16-30 cells (100X) (0-5/hpf); Mean Platelet Volume 9.8 fL (7.4-10.4); Platelet Count 116 thou/uL (130-400); Platelet Morphology Comment Appears Decreased; Tear Drops SLIGHT = 2-5 cells (100X) (0-1/hpf)
[2022-08-11] MEDS ORDERED: Ketorolac Tromethamine 30 MG/ML VIAL ONE (03:14)
[2022-08-11] MEDS ORDERED: Cyclobenzaprine 10 MG TAB ONE (03:14)
== END 2022-08-11 03:48 | disposition home or self-care (01) ==
LOC: ERS 00:51
DX: J06.9 Acute upper respiratory infection, unspecified (principal); D64.9 Anemia, unspecified; I10 Essential (primary) hypertension; E11.9 Type 2 diabetes mellitus without complications; E78.00 Pure hypercholesterolemia, unspecified; E78.5 Hyperlipidemia, unspecified; Z20.822 Contact with and (suspected) exposure to COVID-19; Z87.891 Personal history of nicotine dependence; Z79.899 Other long term (current) drug therapy
CPT/HCPCS: 36415; 71045; 80053; 80307; 83880; 84484; 85025; 87804; 93005; 96372; J1885; U0003; U0005

== ENCOUNTER 2022-09-10 16:55 | Inpatient (IN) | payer SELFPAY ==
[~2022-09-10 16:55] MED LIST changes: -Heparin 1,000 UNITS/ML VIAL ONE; -Iopamidol 370 76% 100 ML VIAL ONE; +Iopamidol-370 76% 500 ML 1 ML ONE
[2022-09-10] MEDS ORDERED: Nitroglycerin 2% Ointment 1 INCH/1 GM Packet ONE (17:07)
[2022-09-10] MEDS ORDERED: hydrALAZINE 20 MG/ML VIAL ONE (17:09)
[2022-09-10 17:34] LABS: #Eosinphils 0.1 thou/uL (0.0-0.7); #Monocytes 0.3 thou/uL (0.11-0.59); #Neutrophils 3.3 thou/uL (1.40-6.50); %Basophils 0.2 % (0.0-1.0); %Eosinophils 1.4 % (0.0-10.0); %Lymphocytes 21.4 % (21.0-51.0); %Monocytes 5.4 % (0.0-10.0); %Neutrophils 71.7 % (42.0-75.0); Hemoglobin 7.8 g/dL (14.0-18.0); Mean Corpuscular HGB CONC 35.1 g/dL (32.0-36.0); Mean Corpuscular Hemoglobin 43.7 pg (27.0-31.0); Mean Platelet Volume 11.6 fL (7.4-10.4); Platelet Count 88 thou/uL (130-400); RBC Distribution Width 16.2 % (11.5-14.5); Red Blood Cell (RBC) Count 1.77 mill/uL (4.70-6.10); White Blood Cell (WBC) Count 4.6 thou/uL (4.8-10.8)
[2022-09-10 17:53] LABS: ALT (SGPT) 21 U/L (8-55); AST (SGOT) 23 U/L (5-34); Albumin 3.9 g/dL (3.5-5.0); Alkaline Phosphatase 60 U/L (40-110); Anion Gap 11 mmol/L (10-20); BUN (Urea Nitrogen) 18 mg/dL (8.4-25.7); Bilirubin, Total 2.5 mg/dL (0.2-1.2); CK (CPK) 31 U/L (30-200); Calc. Creatinine Clearance 0 mL/min (70-130); Calcium 9.2 mg/dL (7.8-10.44); Carbon Dioxide 26 mmol/L (22-29); Chloride 104 mmol/L (98-107); Estimated GFR 87; Globulin 2.7 g/dL (2.4-3.5); Glucose 155 mg/dL (70-105); Lipase 29 U/L (8-78); Potassium 4.2 mmol/L (3.5-5.1); Protein, Total 6.6 g/dL (6.0-8.3); Sodium 137 mmol/L (136-145)
[2022-09-10 18:06] LABS: MDiff Complete? YES
[2022-09-10 18:07] LABS: Macrocytosis MODERATE=16-30 cells (100X) (0-5/hpf); Ovalocytes SLIGHT = 2-5 cells (100X) (0-1/hpf); Platelet Morphology Comment Appears Decreased; Polychromasia SLIGHT = 2-3 cells (100X) (0-2/hpf); Tear Drops SLIGHT = 2-5 cells (100X) (0-1/hpf)
[2022-09-10] MEDS ORDERED: Aspirin Chewable 81 MG TAB ONE (18:12)
[2022-09-10 19:01] LABS: Bacteria/HPF 3+ HPF (None Seen); Bilirubin Negative (Negative); Blood, Urine Negative (Negative); Clarity Turbid (Clear); Glucose, Urine (Dipstick) Normal (Negative); Ketone, Urine Negative (Negative); Leukocyte 250 Leu/uL (Negative); Nitrite Negative (Negative); Protein, Urine (Dipstick) Negative (Neg-Trace); RBC/HPF 0-3 HPF (0-3); Specific Gravity, Urine 1.018 (1.002-1.036); Squamous Epithelial None Seen HPF (0-3); Urobilinogen 6 mg/dL (Less than 2); WBC/HPF 21-50 HPF (0-3); pH, Urine 6.5 (5.0-9.0)
[2022-09-10] MEDS ORDERED: hydrALAZINE 20 MG/ML VIAL SLOW IVP PRN (19:03)
[2022-09-10] MEDS ORDERED: Dextrose 5% in Water 1,000 ML IV PRN (19:06)
[2022-09-10] MEDS ORDERED: Dextrose 50% Abboject 50 ML SYRINGE SLOW IVP PRN (19:06)
[2022-09-10] MEDS ORDERED: HumaLOG 300 UNITS/3 ML VIAL SC PRN (19:06)
[2022-09-10] MEDS ORDERED: Acetaminophen 325 MG TAB PO PRN (19:22)
[2022-09-10] MEDS ORDERED: cefTRIAXone\\ROCEPHIN 1 GM VIAL ONE (19:51)
[2022-09-10 20:03] LABS: Phosphorus 3.2 mg/dL (2.3-4.7)
[2022-09-10 20:58] VITALS: BMI 40.0
[2022-09-10 21:19] LABS: Hemoglobin 7.3 g/dL (14.0-18.0)
[2022-09-10 21:48] LABS: Troponin I 0.046 ng/mL (< 0.028)
[2022-09-10] MEDS: Pantoprazole 40 MG VIAL IVP SCH (22:27)
[2022-09-10 22:43] LABS: SARS-CoV-2 NAA Rapid Test Not Detected (NotDetected)
[2022-09-11 00:30] LABS: Troponin I 0.052 ng/mL (< 0.028)
[2022-09-11 04:45] LABS: Hemoglobin A1c 7.2 % (4.0-6.0)
[2022-09-11 05:04] LABS: INR-International Normal Ratio 1.2; Prothrombin Time 14.9 sec (12.0-14.7)
[2022-09-11 05:08] LABS: Phosphorus 3.7 mg/dL (2.3-4.7)
[2022-09-11 05:17] LABS: ALT (SGPT) 19 U/L (8-55); AST (SGOT) 23 U/L (5-34); Albumin 3.6 g/dL (3.5-5.0); Alkaline Phosphatase 59 U/L (40-110); Anion Gap 13 mmol/L (10-20); BUN (Urea Nitrogen) 19 mg/dL (8.4-25.7); Bilirubin, Total 2.2 mg/dL (0.2-1.2); Calc. Creatinine Clearance 185 mL/min (70-130); Calcium 9.1 mg/dL (7.8-10.44); Carbon Dioxide 23 mmol/L (22-29); Chloride 105 mmol/L (98-107); Estimated GFR 95; Globulin 2.5 g/dL (2.4-3.5); Glucose 166 mg/dL (70-105); Potassium 3.8 mmol/L (3.5-5.1); Protein, Total 6.1 g/dL (6.0-8.3); Sodium 137 mmol/L (136-145)
[2022-09-11 05:21] LABS: #Eosinphils 0.1 thou/uL (0.0-0.7); #Lymphocytes 0.8 thou/uL (1.20-3.40); #Monocytes 0.2 thou/uL (0.11-0.59); #Neutrophils 2.6 thou/uL (1.40-6.50); %Basophils 0.1 % (0.0-1.0); %Eosinophils 1.9 % (0.0-10.0); %Lymphocytes 22.5 % (21.0-51.0); %Monocytes 4.1 % (0.0-10.0); %Neutrophils 71.4 % (42.0-75.0); Hemoglobin 7.6 g/dL (14.0-18.0); Mean Corpuscular HGB CONC 36.1 g/dL (32.0-36.0); Mean Corpuscular Hemoglobin 45.5 pg (27.0-31.0); Mean Platelet Volume 10.9 fL (7.4-10.4); Platelet Count 85 thou/uL (130-400); RBC Distribution Width 14.8 % (11.5-14.5); Red Blood Cell (RBC) Count 1.66 mill/uL (4.70-6.10); White Blood Cell (WBC) Count 3.7 thou/uL (4.8-10.8)
[2022-09-11] MEDS: Mometasone 200 MCG/Formoterol 5 MCG 120 PUFF INHALER INH SCH ×2 (07:27→19:35)
[2022-09-11] MEDS: buPROPion HCl 100 MG TAB PO SCH (09:33)
[2022-09-11] MEDS: Lisinopril 20 MG TAB PO SCH (09:36)
[2022-09-11] MEDS: Divalproex Sodium DR 500 MG TAB PO SCH ×2 (09:37→22:24)
[2022-09-11] MEDS: Pantoprazole 40 MG VIAL IVP SCH ×2 (09:38→22:24)
[2022-09-11 11:17] LABS: Hemoglobin 7.6 g/dL (14.0-18.0)
[2022-09-11] MEDS ORDERED: GoLYTELY 4,000 ml Bottle PO SCH (13:15)
[2022-09-11 13:29] LABS: Hemoglobin 7.8 g/dL (14.0-18.0)
[2022-09-11 14:21] LABS: Iron 180 ug/dL (65-175); Iron Binding Capacity, Total 188 mcg/dL (261-462)
[2022-09-11 14:37] LABS: Ferritin 369.23 ng/mL (22-322); Vitamin B12 Less than 109 pg/mL (211-911)
[2022-09-11 18:16] LABS: Hemoglobin 7.5 g/dL (14.0-18.0)
[2022-09-11] MEDS ORDERED: Cyanocobalamin 1000 MCG/ML VIAL IM SCH (18:45)
[2022-09-12 05:23] LABS: #Eosinphils 0.1 thou/uL (0.0-0.7); #Monocytes 0.2 thou/uL (0.11-0.59); #Neutrophils 2.6 thou/uL (1.40-6.50); %Basophils 0.5 % (0.0-1.0); %Eosinophils 1.7 % (0.0-10.0); %Lymphocytes 24.6 % (21.0-51.0); %Monocytes 6.1 % (0.0-10.0); %Neutrophils 67.1 % (42.0-75.0); Hemoglobin 8.4 g/dL (14.0-18.0); Mean Corpuscular HGB CONC 34.7 g/dL (32.0-36.0); Mean Corpuscular Hemoglobin 42.1 pg (27.0-31.0); Platelet Count 87 thou/uL (130-400); RBC Distribution Width 19.2 % (11.5-14.5); Red Blood Cell (RBC) Count 1.99 mill/uL (4.70-6.10); White Blood Cell (WBC) Count 3.9 thou/uL (4.8-10.8)
[2022-09-12 05:26] LABS: Anion Gap 12 mmol/L (10-20); BUN (Urea Nitrogen) 17 mg/dL (8.4-25.7); Calc. Creatinine Clearance 169 mL/min (70-130); Carbon Dioxide 24 mmol/L (22-29); Chloride 104 mmol/L (98-107); Estimated GFR 85; Glucose 160 mg/dL (70-105); Potassium 4.1 mmol/L (3.5-5.1); Sodium 136 mmol/L (136-145)
[2022-09-12 05:30] LABS: Troponin I 0.047 ng/mL (< 0.028)
[2022-09-12 05:47] LABS: HBCM Index 0.22 S/CO (0-0.79); HBSAg Index 0.38 S/CO (0-0.99); Hep A IgM AB Non-Reactive (NonReactive); Hep A IgM S/CO 0.19 S/CO (0-0.79); Hep B Surf Ag Non-Reactive S/CO (NonReactive); Hep C IgG Ab Non-Reactive (NonReactive); Hep C Index 0.12 S/CO (0-0.79); Hepatitis B Core IgM Abs Non-Reactive (NonReactive)
[2022-09-12] MEDS: Mometasone 200 MCG/Formoterol 5 MCG 120 PUFF INHALER INH SCH (07:11)
[2022-09-12 07:40] VITALS: BP 161/72; TEMP 97.7
[2022-09-12] MEDS ORDERED: Alogliptin 25 MG TAB PO SCH (09:00)
[2022-09-12] MEDS: buPROPion HCl 100 MG TAB PO SCH (09:07)
[2022-09-12] MEDS: Divalproex Sodium DR 500 MG TAB PO SCH (09:08)
[2022-09-12] MEDS: Lisinopril 20 MG TAB PO SCH (09:08)
[2022-09-12] MEDS: Pantoprazole 40 MG VIAL IVP SCH ×2 (09:11→11:24)
[2022-09-13] MEDS ORDERED: FLU VACC QS2022-23(6MOS UP)/PF 60 MCG/0.5 ML SYRINGE IM ONE (09:00)
== END 2022-09-12 11:23 | disposition home or self-care (01) | DRG 809 ==
LOC: ERS 16:55 → 2SW 20:46
PROVIDERS: ADMIT Internal Medicine; ATTEND Internal Medicine
PROC: 30233N1 Transfusion of Nonautologous Red Blood Cells into Peripheral Vein, Percutaneous Approach (ICD-10-PCS; principal; 2022-09-11)
DX: D61.818 Other pancytopenia (principal); I16.1 Hypertensive emergency; I24.8 Other forms of acute ischemic heart disease; K92.1 Melena; Z68.41 Body mass index [BMI] 40.0-44.9, adult; D51.9 Vitamin B12 deficiency anemia, unspecified; E11.9 Type 2 diabetes mellitus without complications; D62 Acute posthemorrhagic anemia; E78.5 Hyperlipidemia, unspecified; G47.33 Obstructive sleep apnea (adult) (pediatric); F31.9 Bipolar disorder, unspecified; F41.9 Anxiety disorder, unspecified; K74.60 Unspecified cirrhosis of liver; E66.3 Overweight; Z88.0 Allergy status to penicillin; Z88.5 Allergy status to narcotic agent; Z79.84 Long term (current) use of oral hypoglycemic drugs; Z79.899 Other long term (current) drug therapy; Z87.891 Personal history of nicotine dependence; Z79.4 Long term (current) use of insulin
CPT/HCPCS: 36415; 36416; 36430; 71045; 71275; 76705; 80048; 80053; 80074; 81003; 81015; 82550; 82553; 82607; 82728; 83036; 83540; 83550; 83690; 83735; 83880; 84100; 84443; 84484; 85025; 85379; 85610; 85730; 86850; 86870; 86880; 86900; 86901; 86921; 87077; 87086; 87186; 93005; 93306; 96365; C9113; J0360; J0696; J3420; P9016; Q9967; U0002

== ENCOUNTER 2023-03-18 18:54 | Inpatient (IN) | payer SELFPAY ==
[~2023-03-18 18:54] MED LIST changes: +Iopamidol 370 76% 100 ML VIAL ONE; -Iopamidol-370 76% 500 ML 1 ML ONE
[2023-03-18 19:41] LABS: #Lymphocytes 1.4 thou/uL (1.20-3.40); #Monocytes 0.9 thou/uL (0.11-0.59); #Neutrophils 6.4 thou/uL (1.40-6.50); %Basophils 0.1 % (0.0-1.0); %Eosinophils 0.3 % (0.0-10.0); %Lymphocytes 15.7 % (21.0-51.0); %Monocytes 10.3 % (0.0-10.0); %Neutrophils 73.6 % (42.0-75.0); Hemoglobin 13.1 g/dL (14.0-18.0); Mean Corpuscular HGB CONC 33.4 g/dL (32.0-36.0); Mean Corpuscular Hemoglobin 33.9 pg (27.0-31.0); Mean Platelet Volume 9.7 fL (7.4-10.4); Platelet Count 90 10x3/uL (130-400); RBC Distribution Width 14.2 % (11.5-14.5); Red Blood Cell (RBC) Count 3.85 mill/uL (4.70-6.10); White Blood Cell (WBC) Count 8.7 10x3/uL (4.8-10.8)
[2023-03-18 19:47] LABS: INR-International Normal Ratio 1.1; PTT 29.5 sec (22.9-36.1); Prothrombin Time 14.3 sec (12.0-14.7)
[2023-03-18 19:59] LABS: ALT (SGPT) 14 U/L (8-55); AST (SGOT) 12 U/L (5-34); Albumin 3.8 g/dL (3.5-5.0); Alkaline Phosphatase 70 U/L (40-110); Anion Gap 14 mmol/L (10-20); BUN (Urea Nitrogen) 15 mg/dL (8.4-25.7); Bilirubin, Total 1.7 mg/dL (0.2-1.2); Calc. Creatinine Clearance 0 mL/min (70-130); Carbon Dioxide 22 mmol/L (22-29); Chloride 96 mmol/L (98-107); Estimated GFR 60; Globulin 3.2 g/dL (2.4-3.5); Glucose 365 mg/dL (70-105); Potassium 3.9 mmol/L (3.5-5.1); Sodium 128 mmol/L (136-145)
[2023-03-18] MEDS ORDERED: Ondansetron PF 4 MG/2 ML Vial ONE (20:56)
[2023-03-18] MEDS ORDERED: Ketorolac Tromethamine 30 MG/ML VIAL ONE (20:56)
[2023-03-18] MEDS ORDERED: Acetaminophen 500 MG TAB ONE (20:56)
[2023-03-18] MEDS ORDERED: Vancomycin 1 GM/200 ML (FROZEN) BAG ONE (22:09)
[2023-03-18] MEDS ORDERED: Cefepime 2 GM VIAL ONE (22:09)
[2023-03-19 00:56] VITALS: BMI 39.9
[2023-03-19 02:30] LABS: Bacteria/HPF None Seen HPF (None Seen); Bilirubin Negative (Negative); Blood, Urine Negative (Negative); CAUTI Indications for Culture Fever or rigors; Clarity Clear (Clear); Glucose, Urine (Dipstick) 300 mg/dL (Negative); Ketone, Urine Negative (Negative); Leukocyte 250 Leu/uL (Negative); Nitrite Negative (Negative); Protein, Urine (Dipstick) 20 mg/dL (Neg-Trace); RBC/HPF 0-3 HPF (0-3); Squamous Epithelial 0-3 HPF (0-3); Urobilinogen Normal mg/dL (Less than 2); WBC/HPF 21-50 HPF (0-3)
[2023-03-19 02:34] LABS: Specific Gravity, Urine Greater than 1.060 (1.002-1.036)
[2023-03-19 02:36] LABS: Urine Culture Reflex Yes Yes
[2023-03-19] MEDS ORDERED: Ondansetron ODT 4 MG TAB PO PRN (04:23)
[2023-03-19] MEDS ORDERED: Acetaminophen 650 MG Suppository PR PRN (04:23)
[2023-03-19] MEDS ORDERED: Ondansetron PF 4 MG/2 ML Vial IVP PRN (04:23)
[2023-03-19] MEDS ORDERED: HumaLOG 300 UNITS/3 ML VIAL SC PRN (04:26)
[2023-03-19] MEDS ORDERED: Dextrose 50% Abboject 50 ML SYRINGE SLOW IVP PRN (04:26)
[2023-03-19] MEDS ORDERED: Dextrose 5% in Water 1,000 ML IV PRN (04:26)
[2023-03-19] MEDS: Sodium Chloride 0.9% 1,000 ML IV SCH ×2 (05:20→15:01)
[2023-03-19] MEDS: HumaLOG 300 UNITS/3 ML VIAL SC PRN ×3 (05:20→16:49)
[2023-03-19] MEDS: VANCOMYCIN 2 GRAM/500 ML BAG 2 GM in Premix Bag 1 BAG IVPB SCH ×2 (06:03→17:50)
[2023-03-19 07:33] LABS: Anion Gap 12 mmol/L (10-20); BUN (Urea Nitrogen) 14 mg/dL (8.4-25.7); Calc. Creatinine Clearance 187 mL/min (70-130); Calcium 8.6 mg/dL (7.8-10.44); Carbon Dioxide 21 mmol/L (22-29); Chloride 104 mmol/L (98-107); Estimated GFR 97; Glucose 234 mg/dL (70-105); Potassium 4.1 mmol/L (3.5-5.1); Sodium 133 mmol/L (136-145)
[2023-03-19 07:34] LABS: #Eosinphils 0.1 thou/uL (0.0-0.7); #Lymphocytes 1.3 thou/uL (1.20-3.40); #Monocytes 0.9 thou/uL (0.11-0.59); #Neutrophils 3.9 thou/uL (1.40-6.50); %Basophils 0.3 % (0.0-1.0); %Eosinophils 1.3 % (0.0-10.0); %Lymphocytes 20.7 % (21.0-51.0); %Monocytes 14.1 % (0.0-10.0); %Neutrophils 63.6 % (42.0-75.0); Hemoglobin 13.6 g/dL (14.0-18.0); Mean Corpuscular HGB CONC 34.1 g/dL (32.0-36.0); Mean Corpuscular Hemoglobin 36.3 pg (27.0-31.0); Mean Platelet Volume 9.8 fL (7.4-10.4); Platelet Count 78 10x3/uL (130-400); RBC Distribution Width 14.4 % (11.5-14.5); Red Blood Cell (RBC) Count 3.74 mill/uL (4.70-6.10); White Blood Cell (WBC) Count 6.2 10x3/uL (4.8-10.8)
[2023-03-19] MEDS: Cefepime 2 GM in Sodium Chloride 0.9% 100 ML IVPB SCH ×2 (08:37→21:01)
[2023-03-19] MEDS ORDERED: VANCOMYCIN 1.25 GM/250 ML BAG 1.25 GM in Premix Bag 1 BAG IVPB SCH (09:00)
[2023-03-19] MEDS: Acetaminophen 325 MG TAB PO PRN ×2 (16:48→20:49)
[2023-03-19] MEDS: Divalproex Sodium DR 500 MG TAB PO SCH (20:48)
[2023-03-20] MEDS: Sodium Chloride 0.9% 1,000 ML IV SCH (00:39)
[2023-03-20] MEDS: VANCOMYCIN 2 GRAM/500 ML BAG 2 GM in Premix Bag 1 BAG IVPB SCH (05:49)
[2023-03-20] MEDS: HumaLOG 300 UNITS/3 ML VIAL SC PRN ×2 (05:50→12:00)
[2023-03-20 08:05] LABS: Anion Gap 11 mmol/L (10-20); BUN (Urea Nitrogen) 10 mg/dL (8.4-25.7); Calc. Creatinine Clearance 200 mL/min (70-130); Calcium 8.8 mg/dL (7.8-10.44); Carbon Dioxide 26 mmol/L (22-29); Chloride 102 mmol/L (98-107); Estimated GFR 101; Glucose 183 mg/dL (70-105); Potassium 4.2 mmol/L (3.5-5.1); Sodium 135 mmol/L (136-145)
[2023-03-20 08:11] LABS: #Eosinphils 0.1 thou/uL (0.0-0.7); #Lymphocytes 1.2 thou/uL (1.20-3.40); #Monocytes 0.7 thou/uL (0.11-0.59); #Neutrophils 3.7 thou/uL (1.40-6.50); %Basophils 0.4 % (0.0-1.0); %Eosinophils 2.1 % (0.0-10.0); %Lymphocytes 20.3 % (21.0-51.0); %Monocytes 11.7 % (0.0-10.0); %Neutrophils 65.5 % (42.0-75.0); Hemoglobin 13.8 g/dL (14.0-18.0); Mean Corpuscular Hemoglobin 34.6 pg (27.0-31.0); Platelet Count 80 10x3/uL (130-400); RBC Distribution Width 14.2 % (11.5-14.5); White Blood Cell (WBC) Count 5.7 10x3/uL (4.8-10.8)
[2023-03-20 08:21] VITALS: TEMP 97.7
[2023-03-20] MEDS: Divalproex Sodium DR 500 MG TAB PO SCH (08:58)
[2023-03-20] MEDS: Cefepime 2 GM in Sodium Chloride 0.9% 100 ML IVPB SCH (08:58)
[2023-03-20] MEDS ORDERED: buPROPion HCl 100 MG TAB PO SCH (09:00)
[2023-03-20 16:27] VITALS: BP 158/90
== END 2023-03-20 16:45 | disposition home or self-care (01) | DRG 872 ==
LOC: ERS 18:54 → T4-B 23:20
PROVIDERS: ADMIT Student in an Organized Health Care Education/Training Program; ATTEND Family Medicine
DX: A41.9 Sepsis, unspecified organism (principal); E87.1 Hypo-osmolality and hyponatremia; N17.9 Acute kidney failure, unspecified; Z68.41 Body mass index [BMI] 40.0-44.9, adult; N10 Acute pyelonephritis; E11.9 Type 2 diabetes mellitus without complications; K76.0 Fatty (change of) liver, not elsewhere classified; R16.1 Splenomegaly, not elsewhere classified; E66.9 Obesity, unspecified; E78.00 Pure hypercholesterolemia, unspecified; F31.9 Bipolar disorder, unspecified; F41.9 Anxiety disorder, unspecified; G47.33 Obstructive sleep apnea (adult) (pediatric); I10 Essential (primary) hypertension; N28.89 Other specified disorders of kidney and ureter; Z88.5 Allergy status to narcotic agent; Z88.0 Allergy status to penicillin; Z88.8 Allergy status to other drugs, medicaments and biological substances; Z79.899 Other long term (current) drug therapy; Z87.891 Personal history of nicotine dependence
CPT/HCPCS: 36415; 36416; 71045; 74177; 80048; 80053; 81001; 83605; 83690; 85025; 85610; 85730; 87081; 87086; 93005; 94660; 94760; J0692; J1815; J1885; J2405; J3370; J3370-JW; J3490; J7050; Q9967

== ENCOUNTER 2024-05-26 21:22 | Emergency (ER) | payer SELFPAY ==
[2024-05-26] MEDS ORDERED: Calcium Chloride 1 GM/10 ML Abboject SYRINGE ONE (21:25)
[2024-05-26] MEDS ORDERED: EPINEPHrine 1 MG/10 ML Abboject SYRINGE ONE (21:25)
[2024-05-26] MEDS ORDERED: Sodium Bicarb 50 MEQ/50 ML Abboject 8.4% SYRINGE ONE (21:25)
[2024-05-26] MEDS ORDERED: Dextrose 50% Abboject 50 ML SYRINGE ONE (21:25)
== END 2024-05-26 21:35 | disposition expired ==
LOC: ERS 21:22
DX: I46.9 Cardiac arrest, cause unspecified (principal); E11.9 Type 2 diabetes mellitus without complications; I10 Essential (primary) hypertension; Z87.891 Personal history of nicotine dependence
CPT/HCPCS: 92950; J0171; J7999